=== PATIENT | male | born 1975 | race Caucasian/White ===

== ENCOUNTER 2019-10-23 09:28 | Inpatient (IN) | payer MEDICAID ==
[2019-10-23] MEDS ORDERED: Ondansetron 4 MG Tab.DIS PO PRN (12:49)
[2019-10-23] MEDS ORDERED: Temazepam 15 MG Cap PO PRN (12:49)
[2019-10-23] MEDS: Acetaminophen/oxyCODONE 325-5 MG Tab PO PRN ×2 (13:24→19:25)
[2019-10-23] MEDS: Gabapentin 300 MG Cap PO SCH ×2 (13:24→19:23)
[2019-10-23] MEDS: Propranolol 10 MG Tab PO SCH ×2 (13:24→19:23)
[2019-10-23] MEDS: Nicotine 21 MG/24 Hr Patch TRDERM SCH (13:24)
--- NOTE | 2019-10-23 14:42 | PCM.HP.2 ---
H&P History of Present Illness - General Date of Service: 10/23/19 Admit Problem/Dx: Admission Diagnosis/Problem Admission Diagnosis/Problem Hip fracture requiring operative repair Source of Information: Patient History Limitations: Reports: No Limitations - History of Present Illness Initial Comments - Free Text/Narative: Patient admitted swing bed after an ORIF of right hip. Patient had fallen and had a fracture. Had surgery by Dr. Ortiz. Was continuing to have ongoing pain, difficulty with ambulation so transferred to [place] for ongoing physical therapy and pain control. Patient admits to his hip being very tender today. Painful to touch. Denies headache, fever, shortness of breath or chest pain. Does have considerable ecchymosis to right hip. Duration of Symptoms: Reports: Day(s): Location: Reports: Lower Extremity, Right Quality: Reports: Throbbing Severity: Moderate Improves with: Reports: Medication Worsens with: Reports: Movement Associated Symptoms: Reports: Weakness. Denies: Confusion, Chest Pain, Cough, Fever/Chills, Loss of Appetite, Nausea/Vomiting, Shortness of Breath Right Hip Pain Score (Numeric/FACES): 8 - Related Data Allergies/Adverse Reactions: Allergies Allergy/AdvReac Type Severity Reaction Status Date / Time No Known Allergies Allergy Verified 10/23/19 10:28 Home Medications: Home Meds Gabapentin [Neurontin] 300 mg PO TID 10/23/19 [History] Propranolol [Inderal] 10 mg PO TID 10/23/19 [History] amLODIPine [Norvasc] 10 mg PO DAILY 10/23/19 [History] Past Medical History Cardiovascular History: Reports: Hypertension, Other (See Below) Other Cardiovascular History: mitral valve prolapse Respiratory History: Reports: Asthma Musculoskeletal History: Reports: Fracture Neurological History: Reports: Concussion, Neuropathy, Peripheral Psychiatric History: Reports: Addiction, Autism, Depression Hematologic History: Reports: Blood Transfusion(s) Dermatologic History: Reports: Eczema - Past Surgical History HEENT Surgical History: Reports: Myringotomy w Tube(s), Tonsillectomy Cardiovascular Surgical History: Reports: None Respiratory Surgical History: Reports: None Neurological Surgical History: Reports: None Musculoskeletal Surgical History: Reports: ORIF Dermatological Surgical History: Reports: None Social & Family History - Family History Family Medical History: Noncontributory - Tobacco Use Smoking Status *Q: Current Every Day Smoker Years of Tobacco use: 25 Packs/Tins Daily: 1 - Caffeine Use Caffeine Use: Reports: Soda - Recreational Drug Use Recreational Drug Use: Yes Recreational Drug Type: Reports: Marijuana/Hashish Recreational Drug Use Frequency: Weekly H&P Review of Systems - Review of Systems: Review Of Systems: See Below General: Reports: Weakness, Fatigue. Denies: Fever, Chills, Malaise, Decreased Appetite HEENT: Denies: Ear Pain, Headaches, Rhinitis, Sinus Congestion Pulmonary: Denies: Shortness of Breath, Cough Cardiovascular: Denies: Chest Pain, Edema, Lightheadedness Gastrointestinal: Denies: Abdominal Pain, Nausea, Vomiting Genitourinary: Reports: No Symptoms Musculoskeletal: Reports: Leg Pain, Joint Pain Skin: Reports: Bruising, Other (incision to right hip) Psychiatric: Reports: Anxiety Neurological: Reports: Tremors, Weakness Exam - Exam Exam: See Below - Vital Signs Vital Signs: Last Vital Signs Temp 99.4 F 10/23/19 12:10 Pulse 80 10/23/19 13:24 Resp 18 10/23/19 12:10 BP 128/83 10/23/19 13:24 Pulse Ox 98 10/23/19 12:10 Weight: 169 lb 14.4 oz - Exam General: Alert, Oriented HEENT: Conjunctiva Clear, Mucosa Moist & [place], Posterior Pharynx Clear Neck: Supple Lungs: Clear to Auscultation, Normal Respiratory Effort Cardiovascular: Regular Rate, Regular Rhythm GI/Abdominal Exam: Normal Bowel Sounds, Soft, Non-Tender Extremities: Joint Swelling, Leg Pain, Limited Range of Motion, Other ( ecchymosis to right hip. Deejay intact) Skin: Incision Neuro Extensive - Mental Status: Alert, Oriented x3, Other (essential hand tremors noted) Sepsis Event Note - Evaluation Sepsis Screening Result: No Definite Risk - Focused Exam Vital Signs: Vital Signs Temp Pulse Pulse Resp BP BP Pulse Ox 10/23/19 13:24 80 128/83 10/23/19 12:10 99.4 F 80 18 128/83 98 Date Exam was Performed: 10/25/19 Time Exam was Performed: 09:22 - Problem List (1) Hip fracture requiring operative repair SNOMED Code(s): 047824455 ICD Code: S72.009A - FRACTURE OF UNSP PART OF NECK OF UNSP FEMUR, INIT Status: Acute Priority: High Current Visit: Yes Qualifiers: Encounter type: sequela Fracture type: closed Laterality: right Qualified Code(s): S72.001S - Fracture of unspecified part of neck of right femur, sequela Problem List Initiated/Reviewed/Updated: Yes Orders Last 24hrs: Active Orders 24 hr Category Date Time Status Patient Status [ADT] Routine ADT 10/23/19 12:49 Active Communication Order [RC] .PRN Care 10/23/19 12:49 Active Dressing Change [Wound Care] [RC] Care 10/23/19 12:57 Active Oxygen Therapy [RC] .PRN Care 10/23/19 12:49 Active Up With Assistance [RC] .PRN Care 10/23/19 12:49 Active Vital Signs [RC] Care 10/23/19 12:49 Active PT Evaluation and Treatment [CONS] Routine Cons 10/23/19 12:49 Active Regular Diet [DIET] Diet 10/23/19 Lunch Active Acetaminophen [Tylenol] Med 10/23/19 12:49 Active 650 mg PO Q4H PRN Acetaminophen/oxyCODONE [Percocet 325-5 MG] Med 10/23/19 12:49 Active 1 - 2 tab PO Q4H PRN Cyclobenzaprine [Flexeril] Med 10/23/19 12:49 Active 10 mg PO TID PRN Gabapentin [Neurontin] Med 10/23/19 14:00 Active 300 mg PO TID LORazepam [Ativan] Med 10/23/19 12:49 Active 0.5 mg PO Q6H PRN Nicotine [Habitrol] Med 10/23/19 13:15 Active 21 mg TRDERM DAILY Ondansetron [Zofran ODT] Med 10/23/19 12:49 Active 4 mg PO Q4H PRN Propranolol [Inderal] Med 10/23/19 14:00 Active 10 mg PO TID Temazepam [Restoril] Med 10/23/19 12:49 Active 15 mg PO BEDTIME PRN amLODIPine [Norvasc] Med 10/24/19 08:00 Active 10 mg PO DAILY Resuscitation Status Routine Resus Stat 10/23/19 12:49 Ordered Medication Orders Acetaminophen (Tylenol) 650 mg PO Q4H PRN PRN Reason: Pain (Mild 1-3)/fever Amlodipine Besylate (Norvasc) 10 mg PO DAILY [facility] Cyclobenzaprine HCl (Flexeril) 10 mg PO TID PRN PRN Reason: Muscle Spasm Gabapentin (Neurontin) 300 mg PO TID [facility] Last Admin: 10/23/19 13:24 Dose: 300 mg Lorazepam (Ativan) 0.5 mg PO Q6H PRN PRN Reason: Anxiety Nicotine (Habitrol) 21 mg TRDERM DAILY [facility] Last Admin: 10/23/19 13:24 Dose: 21 mg Ondansetron HCl (Zofran Odt) 4 mg PO Q4H PRN PRN Reason: nausea, able to take PO Oxycodone/Acetaminophen (Percocet 325-5 Mg) 1 - 2 tab PO Q4H PRN PRN Reason: Pain (moderate 4-6) Propranolol HCl (Inderal) 10 mg PO TID [facility] Last Admin: 10/23/19 13:24 Dose: 10 mg Temazepam (Restoril) 15 mg PO BEDTIME PRN PRN Reason: Sleep Assessment/Plan Comment:: ORIF of right hip Plan: Physical therapy for strengthening and ambulation Continue Percocet for pain Ice to hip - Mortality Measure Prognosis:: Good
[2019-10-23] MEDS: Cyclobenzaprine 10 MG Tab PO PRN (16:15)
[2019-10-23] MEDS: Enoxaparin 40 MG/0.4 ML Syringe SUBCUT SCH (19:23)
[2019-10-24] MEDS: Propranolol 10 MG Tab PO SCH ×3 (08:08→19:36)
[2019-10-24] MEDS: Acetaminophen/oxyCODONE 325-5 MG Tab PO PRN ×3 (08:09→18:39)
[2019-10-24] MEDS: Gabapentin 300 MG Cap PO SCH ×3 (08:09→19:36)
[2019-10-24] MEDS: amLODIPine 10 MG Tab PO SCH (08:09)
[2019-10-24] MEDS: Nicotine 21 MG/24 Hr Patch TRDERM SCH (08:11)
[2019-10-24] MEDS: Cyclobenzaprine 10 MG Tab PO PRN (12:16)
[2019-10-24] MEDS: Enoxaparin 40 MG/0.4 ML Syringe SUBCUT SCH (19:36)
[2019-10-25] MEDS: Acetaminophen/oxyCODONE 325-5 MG Tab PO PRN ×5 (05:39→23:16)
[2019-10-25] MEDS: Polyethylene Glycol 3350 Powder 17 GM Packet PO SCH (08:14)
[2019-10-25] MEDS: Propranolol 10 MG Tab PO SCH ×3 (08:16→19:51)
[2019-10-25] MEDS: Gabapentin 300 MG Cap PO SCH ×3 (08:16→19:51)
[2019-10-25] MEDS: amLODIPine 10 MG Tab PO SCH (08:16)
[2019-10-25] MEDS: Nicotine 21 MG/24 Hr Patch TRDERM SCH (08:17)
[2019-10-25] MEDS: Acetaminophen 325 MG Tab PO PRN (08:20)
[2019-10-25] MEDS: LORazepam 0.5 MG Tab PO PRN ×3 (08:21→23:16)
[2019-10-25] MEDS: Enoxaparin 40 MG/0.4 ML Syringe SUBCUT SCH (19:54)
[2019-10-26] MEDS: amLODIPine 10 MG Tab PO SCH (07:45)
[2019-10-26] MEDS: Gabapentin 300 MG Cap PO SCH ×3 (07:45→20:05)
[2019-10-26] MEDS: Nicotine 21 MG/24 Hr Patch TRDERM SCH (07:45)
[2019-10-26] MEDS: Polyethylene Glycol 3350 Powder 17 GM Packet PO SCH (07:45)
[2019-10-26] MEDS: Propranolol 10 MG Tab PO SCH ×3 (07:46→20:05)
[2019-10-26 07:47] LABS: CHLORIDE,CL 97 mEq/L (98-106); SODIUM,NA 133 mEq/L (136-145)
[2019-10-26] MEDS: Acetaminophen/oxyCODONE 325-5 MG Tab PO PRN ×2 (09:50→20:05)
[2019-10-26] MEDS: Acetaminophen 325 MG Tab PO PRN ×2 (14:18→23:48)
[2019-10-26] MEDS ORDERED: QUEtiapine 25 MG Tab PO SCH (20:00)
[2019-10-26] MEDS: Enoxaparin 40 MG/0.4 ML Syringe SUBCUT SCH (20:03)
[2019-10-26] MEDS: LORazepam 0.5 MG Tab PO PRN (20:04)
--- NOTE | 2019-10-26 20:39 | PCM.CONSBH ---
Hx. Present Illness - - General Date of Service: 10/26/19 Admit Problem/Dx: Admission Diagnosis/Problem Admission Diagnosis/Problem Hip fracture requiring operative repair Source of Information: Reports: Patient, RN Notes Reviewed - History of Present Illness INITIAL COMMENTS - FREE TEXT/NARRATIVE: Patient is a 44 year old male admitted to [facility] Bed on 10/23/2019 for hip fracture requiring repair. Eamon reports a history of alcohol abuse which resulted in the patient experiencing Delirium Tremens. He reports lying on the floor of his mom's residence before going to the hospital on . According to the patient surgery did not take place until 4-5 days later due to DT'S. Patient states he has gone through DT'S in the past but says this was his worst experience ever. When going through DT's patient reports experiencing hallucinations, delusions, tremors, but denies seizures. Patient states he will see people talking to him that are not there and sees bugs flying over him. Eamon states he first started drinking at the age of 15. He reports until he fell and fractured his hip was drinking at least 5 rum shooters and 4 tall Camo Malt beverages per day. Patient also reports a history of depression. He reports loss of interest, depressed mood, poor sleep, poor concentration, occasional feelings of hopelessness, sense of failure and feelings of guilt. Patient rates his depression as a 6/10 on a 0 - 10 scale where 0 is no symptoms and 10 is worse symptoms. Patient has complaints of excessive worries related to his mother as he reports being her care give. He also worries about getting caught up with child support. Patient reports seeing bugs flying around him that come and go and says the only thing that makes them go away is drinking. He reports "blacking out over the weekend" even thought he was hospitalized and waking up not knowing where he was. "When I woke up I thought I was at my friend [employer] Patient had to be informed by nursing staff that he was in the hospital. He denies auditory hallucinations. Patient states sleep has been poor since he quit drinking. Appetite reported as increasing. - Related Data Allergies/Adverse Reactions: Allergies Allergy/AdvReac Type Severity Reaction Status Date / Time No Known Allergies Allergy Verified 10/23/19 10:28 Home Medications: Home Meds Gabapentin [Neurontin] 300 mg PO TID 10/23/19 [History] Propranolol [Inderal] 10 mg PO TID 10/23/19 [History] amLODIPine [Norvasc] 10 mg PO DAILY 10/23/19 [History] Past Medical Hx - Other Cardiovascular Hx: mitral valve prolapse Psychiatric Hx: Reports: Addiction, Behavioral, Depression Other Psychiatric Hx: Past medication trials include the following according to the patient: Fluoxetine, Sertraline, Buproprion, Escitalopram, Venlafaxine, and Seroquel. He reports being off the Seroquel for over a year however pharmacy records show it was filled in April,; July,, and September,. 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 Oakes, Psychiatrist. He is unable to remember last time he saw Dr. Oakes. Social & Family History - - Family History Family Psychiatric and CD Hx: Patient reports following family history: depression- mother; chemical dependency- brother Patient states past drug use includes heroin, jael dust, coke, crank, and meth. He reports being able to kick those but has not been able to stop drinking alcohol. - Tobacco Use Years of Tobacco use: 25 - Alcohol Use Alcohol Use History: Yes Alcohol Use in Last Twelve Months: Yes Alcohol Use Frequency: Reports: Daily Alcohol Use Comment: Patient reports drinking 4 tall Camo malt beverages and 5 rum shooters a day. Daily alcohol use. Started drinking at age of 15. - Recreational Drug Use Recreational Drug Use: Yes Recreational Drug Type: Reports: Marijuana/Hashish (reports marijuanan use whenever its available to him) Review of Systems - - Review of Systems: Review Of Systems: See Below Psychiatric: Reports: Confusion (appears disoriented. [facility] a [facility] of [facility] Depression, Hallucinations (Visual ) (reports seeing bugs flying around) Exam - - Exam Exam: See Below - Vital Signs Vital Signs: Last Vital Signs Temp 37.6 C 10/26/19 08:00 Pulse 103 H 10/26/19 20:05 Resp 20 10/26/19 08:00 BP 129/65 10/26/19 20:05 Pulse Ox 98 10/26/19 08:00 - Exam Psychiatric: Other (General Appearance: male adult, dressed in a hospital gown and lying in the hospital bed. Mood: dysphoric. Affect: blunted. Suicidal/Homicidal Ideations: denies. Behavior: pleasant and cooperative, guarded, fair eye contact. Speech: clear, coherent, spontaneous, normal volume and rate. Thought Process: goal directed, linear. Thought Content: Visual hallucinations- reports seeing bugs flying around him. Abnormal movements: tremors noted to bilateral upper extremities. Judgement/Insight: fair.) - [place] I, II, III (1) Alcohol abuse SNOMED Code(s): 68851329 ICD Code: F10.10 - ALCOHOL ABUSE, UNCOMPLICATED Status: Chronic Current Visit: Yes (2) Hallucination SNOMED Code(s): 9580292 ICD Code: R44.3 - HALLUCINATIONS, UNSPECIFIED Status: Acute Current Visit : Yes - Plan FREE TEXT/NARRATIVE: Recommend restarting Seroquel 50 mg at bedtime at this time to help with hallucinations, mood, and sleep. Will follow up with Dr. Oakes from [facility] regarding past treatments. - Orders Orders Last 24hrs: Active Orders 24 hr Category Date Time Status Notify Provider Consults [RC] ASDIRECTED Care 10/26/19 09:00 Active Consult to Physician [CONS] Routine Cons 10/26/19 08:59 Active AMMONIA [REF] Routine Lab 10/26/19 07:15 Received QUEtiapine [SEROqueL] Med 10/26/19 20:00 Active 50 mg PO BEDTIME Medication Orders Acetaminophen (Tylenol) 650 mg PO Q4H PRN PRN Reason: Pain (Mild 1-3)/fever Last Admin: 10/26/19 14:18 Dose: 650 mg Admin: 10/25/19 08:20 Dose: 650 mg Amlodipine Besylate (Norvasc) 10 mg PO DAILY [facility] Last Admin: 10/26/19 07:45 Dose: 10 mg Admin: 10/25/19 08:16 Dose: 10 mg Admin: 10/24/19 08:09 Dose: 10 mg Cyclobenzaprine HCl (Flexeril) 10 mg PO TID PRN PRN Reason: Muscle Spasm Last Admin: 10/24/19 12:16 Dose: 10 mg Admin: 10/23/19 16:15 Dose: 10 mg Enoxaparin Sodium (Lovenox) 40 mg SUBCUT Q24H [facility] Last Admin: 10/26/19 20:03 Dose: 40 mg Admin: 10/25/19 19:54 Dose: 40 mg Admin: 10/24/19 19:36 Dose: 40 mg Admin: 10/23/19 19:23 Dose: 40 mg Gabapentin (Neurontin) 300 mg PO TID [facility] Last Admin: 10/26/19 20:05 Dose: 300 mg Admin: 10/26/19 14:19 Dose: 300 mg Admin: 10/26/19 07:45 Dose: 300 mg Admin: 10/25/19 19:51 Dose: 300 mg Admin: 10/25/19 13:12 Dose: 300 mg Admin: 10/25/19 08:16 Dose: 300 mg Admin: 10/24/19 19:36 Dose: 300 mg Admin: 10/24/19 13:49 Dose: 300 mg Admin: 10/24/19 08:09 Dose: 300 mg Admin: 10/23/19 19:23 Dose: 300 mg Admin: 10/23/19 13:24 Dose: 300 mg Lorazepam (Ativan) 0.5 mg PO Q6H PRN PRN Reason: Anxiety Last Admin: 10/26/19 20:04 Dose: 0.5 mg Admin: 10/25/19 23:16 Dose: 0.5 mg Admin: 10/25/19 14:22 Dose: 0.5 mg Admin: 10/25/19 08:21 Dose: 0.5 mg Nicotine (Habitrol) 21 mg TRDERM DAILY [facility] Last Admin: 10/26/19 07:45 Dose: 21 mg Admin: 10/25/19 08:17 Dose: 21 mg Admin: 10/24/19 08:11 Dose: 21 mg Admin: 10/23/19 13:24 Dose: 21 mg Ondansetron HCl (Zofran Odt) 4 mg PO Q4H PRN PRN Reason: nausea, able to take PO Oxycodone/Acetaminophen (Percocet 325-5 Mg) 1 - 2 tab PO Q4H PRN PRN Reason: Pain (moderate 4-6) Last Admin: 10/26/19 20:05 Dose: 2 tab Admin: 10/26/19 09:50 Dose: 2 tab Admin: 10/25/19 23:16 Dose: 1 tab Admin: 10/25/19 17:57 Dose: 2 tab Admin: 10/25/19 13:13 Dose: 2 tab Admin: 10/25/19 09:14 Dose: 2 tab Admin: 10/25/19 05:39 Dose: 1 tab Admin: 10/24/19 18:39 Dose: 2 tab Admin: 10/24/19 13:49 Dose: 2 tab Admin: 10/24/19 08:09 Dose: 2 tab Admin: 10/23/19 19:25 Dose: 2 tab Admin: 10/23/19 13:24 Dose: 2 tab Polyethylene Glycol (Miralax) 17 gm PO DAILY [facility] Last Admin: 10/26/19 07:45 Dose: 17 gm Admin: 10/25/19 08:14 Dose: 17 gm Propranolol HCl (Inderal) 10 mg PO TID [facility] Last Admin: 10/26/19 20:05 Dose: 10 mg Admin: 10/26/19 14:19 Dose: 10 mg Admin: 10/26/19 07:46 Dose: 10 mg Admin: 10/25/19 19:51 Dose: 10 mg Admin: 10/25/19 13:12 Dose: 10 mg Admin: 10/25/19 08:16 Dose: 10 mg Admin: 10/24/19 19:36 Dose: 10 mg Admin: 10/24/19 13:50 Dose: 10 mg Admin: 10/24/19 08:08 Dose: 10 mg Admin: 10/23/19 19:23 Dose: 10 mg Admin: 10/23/19 13:24 Dose: 10 mg Quetiapine Fumarate (Seroquel) 50 mg PO BEDTIME [facility] Last Admin: 10/26/19 20:04 Dose: 50 mg Temazepam (Restoril) 15 mg PO BEDTIME PRN PRN Reason: Sleep
[2019-10-27] MEDS: Acetaminophen/oxyCODONE 325-5 MG Tab PO PRN (04:05)
[2019-10-27] MEDS: LORazepam 0.5 MG Tab PO PRN (05:02)
[2019-10-27] MEDS: Polyethylene Glycol 3350 Powder 17 GM Packet PO SCH (08:10)
[2019-10-27] MEDS: Propranolol 10 MG Tab PO SCH ×2 (08:11→13:50)
[2019-10-27] MEDS: Gabapentin 300 MG Cap PO SCH ×2 (08:12→13:51)
[2019-10-27] MEDS: amLODIPine 10 MG Tab PO SCH (08:13)
[2019-10-27] MEDS: Acetaminophen 325 MG Tab PO PRN (08:13)
[2019-10-27] MEDS ORDERED: Ibuprofen 200 MG Tab PO PRN (08:25)
[2019-10-27] MEDS ORDERED: QUEtiapine 25 MG Tab PO SCH (08:30)
[2019-10-27] MEDS: Nicotine 21 MG/24 Hr Patch TRDERM SCH (08:33)
[2019-10-27] MEDS ORDERED: LORazepam 0.5 MG Tab PO ONE ×2 (08:45→08:50)
--- NOTE | 2019-10-27 08:56 | PCM.PN.BH ---
- General Info Date of Service: 10/27/19 - Review of Systems Psychiatric: Reports: Other (Patient states he slept poor last night and is tired today. He denies seeing bugs today. Patient holding a pillow out and when asked what he was doing witht he pillow Eamon replied by saying he was giving it to his brother in the chair. Patient told his brother is not here and he says "very funny, this joke is getting old." He is oriented to place and date.) - Patient Data Vitals - Most Recent: Last Vital Signs Temp 38.1 C 10/27/19 08:00 Pulse 101 H 10/27/19 08:11 Resp 20 10/27/19 08:00 BP 136/80 10/27/19 08:13 Pulse Ox 97 10/27/19 08:00 - Exam Psychiatric: Reports: Agitated, Hallucinations, Other (Appearance: adult male wearing a hospital gown laying in bed. Wearing glasses. Mood: irritable. Affect: blunted. Suicidal/Homicidal Ideations: denies. Behavior: psycomotor appears agitated- pulling blankets off him and trying to put on floor , trying to sit up in the bed and get out. eye contact well established. Speech : clear and spontaneous. normal rate and volume. Thought Processes: linear, goal directed. Thought Content: visual hallucinatons- seeing his brother sitting in the chair next to the bed. No family here this am. Denies seeing bugs this am. Abnormal motor movements: tremors to bilateral upper extremities. Judgement/Insight: poor. Orientation: Patient able to tell undersigned he is in the hospital in [place] and that today is October 27.) - [place] I, II, III (1) Alcohol abuse SNOMED Code(s): 90165632 ICD Code: F10.10 - ALCOHOL ABUSE, UNCOMPLICATED Status: Chronic Current Visit: Yes (2) Hallucination SNOMED Code(s): 0406294 ICD Code: R44.3 - HALLUCINATIONS, UNSPECIFIED Status: Acute Current Visit : Yes - Plan FREE TEXT/NARRATIVE: Discussed following recommendations with hospital provider: increase Quetiapine to 50 mg BID to target hallucinations. Schedule Lorazepam 1 mg TID. - Orders Orders Last 24hrs: Active Orders 24 hr Category Date Time Status Notify Provider Consults [RC] ASDIRECTED Care 10/26/19 09:00 Active Consult to Physician [CONS] Routine Cons 10/26/19 08:59 Active Ibuprofen [Motrin] Med 10/27/19 08:25 Active 400 mg PO Q6H PRN LORazepam [Ativan] Med 10/27/19 08:45 Once 0.5 mg PO ONETIME ONE LORazepam [Ativan] Med 10/27/19 08:50 Once 1 mg PO ONETIME ONE LORazepam [Ativan] Med 10/27/19 14:00 Active 1 mg PO TID QUEtiapine [SEROqueL] Med 10/27/19 08:30 Active 50 mg PO BID Medication Orders Acetaminophen (Tylenol) 650 mg PO Q4H PRN PRN Reason: Pain (Mild 1-3)/fever Last Admin: 10/27/19 08:13 Dose: 650 mg Admin: 10/26/19 23:48 Dose: 650 mg Admin: 10/26/19 14:18 Dose: 650 mg Admin: 10/25/19 08:20 Dose: 650 mg Amlodipine Besylate (Norvasc) 10 mg PO DAILY [facility] Last Admin: 10/27/19 08:13 Dose: 10 mg Admin: 10/26/19 07:45 Dose: 10 mg Admin: 10/25/19 08:16 Dose: 10 mg Admin: 10/24/19 08:09 Dose: 10 mg Cyclobenzaprine HCl (Flexeril) 10 mg PO TID PRN PRN Reason: Muscle Spasm Last Admin: 10/24/19 12:16 Dose: 10 mg Admin: 10/23/19 16:15 Dose: 10 mg Enoxaparin Sodium (Lovenox) 40 mg SUBCUT Q24H [facility] Last Admin: 10/26/19 20:03 Dose: 40 mg Admin: 10/25/19 19:54 Dose: 40 mg Admin: 10/24/19 19:36 Dose: 40 mg Admin: 10/23/19 19:23 Dose: 40 mg Gabapentin (Neurontin) 300 mg PO TID [facility] Last Admin: 10/27/19 08:12 Dose: 300 mg Admin: 10/26/19 20:05 Dose: 300 mg Admin: 10/26/19 14:19 Dose: 300 mg Admin: 10/26/19 07:45 Dose: 300 mg Admin: 10/25/19 19:51 Dose: 300 mg Admin: 10/25/19 13:12 Dose: 300 mg Admin: 10/25/19 08:16 Dose: 300 mg Admin: 10/24/19 19:36 Dose: 300 mg Admin: 10/24/19 13:49 Dose: 300 mg Admin: 10/24/19 08:09 Dose: 300 mg Admin: 10/23/19 19:23 Dose: 300 mg Admin: 10/23/19 13:24 Dose: 300 mg Ibuprofen (Motrin) 400 mg PO Q6H PRN PRN Reason: Fever Lorazepam (Ativan) 0.5 mg PO Q6H PRN PRN Reason: Anxiety Last Admin: 10/27/19 05:02 Dose: 0.5 mg Admin: 10/26/19 20:04 Dose: 0.5 mg Admin: 10/25/19 23:16 Dose: 0.5 mg Admin: 10/25/19 14:22 Dose: 0.5 mg Admin: 10/25/19 08:21 Dose: 0.5 mg Lorazepam (Ativan) 1 mg PO TID [facility] Lorazepam (Ativan) 0.5 mg PO ONETIME ONE Stop: 10/27/19 08:46 Nicotine (Habitrol) 21 mg TRDERM DAILY [facility] Last Admin: 10/27/19 08:33 Dose: 21 mg Admin: 10/26/19 07:45 Dose: 21 mg Admin: 10/25/19 08:17 Dose: 21 mg Admin: 10/24/19 08:11 Dose: 21 mg Admin: 10/23/19 13:24 Dose: 21 mg Ondansetron HCl (Zofran Odt) 4 mg PO Q4H PRN PRN Reason: nausea, able to take PO Oxycodone/Acetaminophen (Percocet 325-5 Mg) 1 - 2 tab PO Q4H PRN PRN Reason: Pain (moderate 4-6) Last Admin: 10/27/19 04:05 Dose: 2 tab Admin: 10/26/19 20:05 Dose: 2 tab Admin: 10/26/19 09:50 Dose: 2 tab Admin: 10/25/19 23:16 Dose: 1 tab Admin: 10/25/19 17:57 Dose: 2 tab Admin: 10/25/19 13:13 Dose: 2 tab Admin: 10/25/19 09:14 Dose: 2 tab Admin: 10/25/19 05:39 Dose: 1 tab Admin: 10/24/19 18:39 Dose: 2 tab Admin: 10/24/19 13:49 Dose: 2 tab Admin: 10/24/19 08:09 Dose: 2 tab Admin: 10/23/19 19:25 Dose: 2 tab Admin: 10/23/19 13:24 Dose: 2 tab Polyethylene Glycol (Miralax) 17 gm PO DAILY [facility] Last Admin: 10/27/19 08:10 Dose: 17 gm Admin: 10/26/19 07:45 Dose: 17 gm Admin: 10/25/19 08:14 Dose: 17 gm Propranolol HCl (Inderal) 10 mg PO TID [facility] Last Admin: 10/27/19 08:11 Dose: 10 mg Admin: 10/26/19 20:05 Dose: 10 mg Admin: 10/26/19 14:19 Dose: 10 mg Admin: 10/26/19 07:46 Dose: 10 mg Admin: 10/25/19 19:51 Dose: 10 mg Admin: 10/25/19 13:12 Dose: 10 mg Admin: 10/25/19 08:16 Dose: 10 mg Admin: 10/24/19 19:36 Dose: 10 mg Admin: 10/24/19 13:50 Dose: 10 mg Admin: 10/24/19 08:08 Dose: 10 mg Admin: 10/23/19 19:23 Dose: 10 mg Admin: 10/23/19 13:24 Dose: 10 mg Quetiapine Fumarate (Seroquel) 50 mg PO BID [facility] Temazepam (Restoril) 15 mg PO BEDTIME PRN PRN Reason: Sleep
[2019-10-27 13:52] VITALS: BP 129/78; PULSE 108
[2019-10-27] MEDS ORDERED: chlordiazePOXIDE 10 MG Cap PO SCH (14:00)
[2019-10-27] MEDS ORDERED: LORazepam 0.5 MG Tab PO SCH (14:00)
[2019-10-27] MEDS ORDERED: LORazepam 2 MG/ML Syringe IVPUSH ONE (14:52)
[2019-10-27] MEDS ORDERED: LORazepam 2 MG/ML Syringe IVPUSH PRN (14:52)
[2019-10-27] MEDS ORDERED: Haloperidol Lactate 5 MG/ML SDV IM ONE (17:15)
[2019-10-27] MEDS ORDERED: Haloperidol Lactate 5 MG/ML SDV ONE (17:44)
[2019-10-27] MEDS ORDERED: LORazepam 2 MG/ML Syringe ONE (18:25)
--- NOTE | 2019-10-28 20:38 | PCM.DCSUM1 ---
Discharge Summary - Hospital Course Free Text/Narrative:: Eamon is a 44 year old male admitted to swing bed for physical therapy after ORIF of right hip as a result of a fall. Had been found on the floor after consuming large amount of alcohol. Was sent to the [facility]. Did go through DTs ove the next few days. ORIF then completed by Dr. Ortiz. Transferred here as was having difficulty understanding concept of toe touch weight bearing. History of alcohol abuse. Has been at the [facility] several times for alcohol treatment. HPI Initial Comments: Patient is a 44 year old male admitted to Swing Bed on 10/23/2019 for hip fracture requiring repair. Eamon reports a history of alcohol abuse which resulted in the patient experiencing Delirium Tremens. He reports lying on the floor of his mom's residence before going to the hospital on . According to the patient surgery did not take place until 4-5 days later due to DT'S. Patient states he has gone through DT'S in the past but says this was his worst experience ever. When going through DT's patient reports experiencing hallucinations, delusions, tremors, but denies seizures. Patient states he will see people talking to him that are not there and sees bugs flying over him. Eamon states he first started drinking at the age of 15. He reports until he fell and fractured his hip was drinking at least 5 rum shooters and 4 tall Camo Malt beverages per day. Patient also reports a history of depression. He reports loss of interest, depressed mood, poor sleep, poor concentration, occasional feelings of hopelessness, sense of failure and feelings of guilt. Patient rates his depression as a 6/10 on a 0 - 10 scale where 0 is no symptoms and 10 is worse symptoms. Patient has complaints of excessive worries related to his mother as he reports being her care give. He also worries about getting caught up with child support. Patient reports seeing bugs flying around him that come and go and says the only thing that makes them go away is drinking. He reports "blacking out over the weekend" even thought he was hospitalized and waking up not knowing where he was. "When I woke up I thought I was at my friend [employer]." Patient had to be informed by nursing staff that he was in the hospital. He denies auditory hallucinations. Patient states sleep has been poor since he quit drinking. Appetite reported as increasing. Diagnosis: Stroke: No Modified [place]aura Scale: No Symptoms at All Modified [place] Scale Score: 0 - Discharge Data Discharge Date: 10/27/19 Discharge Disposition: DC/Tfer to Acute Hospital 02 Condition: Undetermined - Referral to Home Health Primary Care Physician: Colt Ortiz MD - Discharge Diagnosis/Problem(s) (1) Hip fracture requiring operative repair SNOMED Code(s): 562712116 ICD Code: S72.009A - FRACTURE OF UNSP PART OF NECK OF UNSP FEMUR, INIT Status: Acute Priority: High Qualifiers: Encounter type: sequela Fracture type: closed Laterality: right Qualified Code(s): S72.001S - Fracture of unspecified part of neck of right femur, sequela - Patient Summary/Data Complications: none Consults: Consultations 10/23/19 12:49 PT Evaluation and Treatment [CONS] Routine 10/26/19 08:59 Consult to Physician [CONS] Routine Hospital Course: Patient admitted on Saturday following ORIF of right hip for physical therapy. ON admit, patient cooperative, conversive. Significant tremors noted but states chronic in nature. Currently on propranolol. Using nicotine patch for smoking cessation, states tolerating well. Over the first days, patient becoming more restless. Started running a fever. Throwing things on the floor , uncooperative. Delusional at times, seeing bugs on the wall and people in the room that aren't there. Did start Seroquel and Ativan TID but becoming more restless and uncooperative. He continued to have a fever. Labs done, show WBC of 12.2. Urine clear. Lung sounds clear. Incision is clean and dry. Has minimal drainage on bandage. No redness or warmth to incision. Started Librium, given more Ativan but patient continued to worsen in regards to restlessness and thrashing around in bed. Contacted for possible consult as unable to find source of fever and becoming more uncooperative. Discussed with Dr. Mckeon, hospitalist who agreed to accept the patient in transfer. Had also consulted with director clinical operations who recommended to try Haldol. Transferred to [place] per [facility] services. Dr. Michel aware. Mother aware. - Patient Instructions Diet: Usual Diet as Tolerated Activity: As Tolerated Other/Special Instructions: Transfer to per ALS - Discharge Plan *PRESCRIPTION DRUG MONITORING PROGRAM REVIEWED*: No *COPY OF PRESCRIPTION DRUG MONITORING REPORT IN PATIENT FELIX: No Home Medications: Home Meds Gabapentin [Neurontin] 300 mg PO TID 10/23/19 [History] Propranolol [Inderal] 10 mg PO TID 10/23/19 [History] amLODIPine [Norvasc] 10 mg PO DAILY 10/23/19 [History] - Discharge Summary/Plan Comment DC Time >30 min.: Yes Discharge Summary/Plan Comment: Transfer to . Time for consultation with receiving hospital 20 minutes Time with patient 10 minutes Time for documentation 10 minutes. - General Info Date of Service: 10/27/19 Admission Dx/Problem (Free Text: Admission Diagnosis/Problem Admission Diagnosis/Problem Hip fracture requiring operative repair - Review of Systems General: Reports: Fever HEENT: Reports: No Symptoms Pulmonary: Denies: Shortness of Breath, Cough Cardiovascular: Denies: Chest Pain Gastrointestinal: Denies: Abdominal Pain, Vomiting Genitourinary: Reports: No Symptoms Musculoskeletal: Reports: Leg Pain, Joint Pain Skin: Reports: Other (incision) - Patient Data Vitals - Most Recent: Last Vital Signs Temp 101.7 F H 10/27/19 17:52 Pulse 108 H 10/27/19 13:52 Resp 20 10/27/19 08:00 BP 129/78 10/27/19 13:52 Pulse Ox 97 10/27/19 08:00 Weight - Most Recent: 169 lb 14.4 oz Med Orders - Current: Current Medications Discontinued Medications Acetaminophen (Tylenol) 650 mg PO Q4H PRN PRN Reason: Pain (Mild 1-3)/fever Last Admin: 10/27/19 08:13 Dose: 650 mg Amlodipine Besylate (Norvasc) 10 mg PO DAILY [facility] Last Admin: 10/27/19 08:13 Dose: 10 mg Chlordiazepoxide HCl (Librium) 10 mg PO TID [facility] Last Admin: 10/27/19 15:38 Dose: 10 mg Cyclobenzaprine HCl (Flexeril) 10 mg PO TID PRN PRN Reason: Muscle Spasm Last Admin: 10/24/19 12:16 Dose: 10 mg Enoxaparin Sodium (Lovenox) 40 mg SUBCUT Q24H [facility] Last Admin: 10/26/19 20:03 Dose: 40 mg Gabapentin (Neurontin) 300 mg PO TID [facility] Last Admin: 10/27/19 13:51 Dose: 300 mg Haloperidol Lactate (Haldol) 2 mg IM ONETIME ONE Stop: 10/27/19 17:16 Last Admin: 10/27/19 17:39 Dose: 2 mg Haloperidol Lactate (Haldol) Confirm Administered Dose 5 mg .ROUTE .STK-MED ONE Stop: 10/27/19 17:45 Last Admin: 10/27/19 17:38 Dose: Not Given Ibuprofen (Motrin) 400 mg PO Q6H PRN PRN Reason: Fever Last Admin: 10/27/19 17:52 Dose: 400 mg Lorazepam (Ativan) 0.5 mg PO Q6H PRN PRN Reason: Anxiety Last Admin: 10/27/19 05:02 Dose: 0.5 mg Lorazepam (Ativan) 1 mg PO TID [facility] Last Admin: 10/27/19 13:49 Dose: 1 mg Lorazepam (Ativan) 0.5 mg PO ONETIME ONE Stop: 10/27/19 08:46 Last Admin: 10/27/19 08:59 Dose: Not Given Lorazepam (Ativan) 1 mg PO ONETIME ONE Stop: 10/27/19 08:51 Last Admin: 10/27/19 08:58 Dose: 1 mg Lorazepam (Ativan) 1 - 2 mg IVPUSH Q2H PRN PRN Reason: Anxiety Lorazepam (Ativan) 1 mg IVPUSH ONETIME ONE Stop: 10/27/19 14:53 Last Admin: 10/27/19 15:09 Dose: 1 mg Lorazepam (Ativan) Confirm Administered Dose 2 mg .ROUTE .STK-MED ONE Stop: 10/27/19 18:26 Last Admin: 10/27/19 20:03 Dose: Not Given Nicotine (Habitrol) 21 mg TRDERM DAILY [facility] Last Admin: 10/27/19 08:33 Dose: 21 mg Ondansetron HCl (Zofran Odt) 4 mg PO Q4H PRN PRN Reason: nausea, able to take PO Oxycodone/Acetaminophen (Percocet 325-5 Mg) 1 - 2 tab PO Q4H PRN PRN Reason: Pain (moderate 4-6) Last Admin: 10/27/19 04:05 Dose: 2 tab Polyethylene Glycol (Miralax) 17 gm PO DAILY [facility] Last Admin: 10/27/19 08:10 Dose: 17 gm Propranolol HCl (Inderal) 10 mg PO TID [facility] Last Admin: 10/27/19 13:50 Dose: 10 mg Quetiapine Fumarate (Seroquel) 50 mg PO BEDTIME [facility] Last Admin: 10/26/19 20:04 Dose: 50 mg Quetiapine Fumarate (Seroquel) 50 mg PO BID [facility] Last Admin: 10/27/19 08:58 Dose: 50 mg Temazepam (Restoril) 15 mg PO BEDTIME PRN PRN Reason: Sleep - Exam General: Reports: Alert. Denies: Cooperative HEENT: Reports: Mucous Membr. Moist/[place] Neck: Reports: Supple Lungs: Reports: Clear to Auscultation, Normal Respiratory Effort Cardiovascular: Reports: Regular Rate, Regular Rhythm GI/Abdominal Exam: Normal Bowel Sounds, Soft, Non-Tender Skin: Reports: Warm, Dry Wound/Incisions: Reports: Dressing Dry and Intact
== END 2019-10-27 18:30 | DRG 560 ==
LOC: CC.MS 11:09 → UNDOADMIN 11:09 → CC.MS 12:49
PROVIDERS: ADMIT Physician Assistant Medical; ATTEND Family Medicine
DX: S72.001D Fracture of unspecified part of neck of right femur, subsequent encounter for closed fracture with routine healing (principal); F84.0 Autistic disorder; R44.3 Hallucinations, unspecified; W19.XXXD Unspecified fall, subsequent encounter; I10 Essential (primary) hypertension; I34.1 Nonrheumatic mitral (valve) prolapse; G62.9 Polyneuropathy, unspecified; F32.9 Major depressive disorder, single episode, unspecified; F17.210 Nicotine dependence, cigarettes, uncomplicated; F10.10 Alcohol abuse, uncomplicated; Z90.89 Acquired absence of other organs; Z79.899 Other long term (current) drug therapy
CPT/HCPCS: 36415; 80053; 81001; 82140; 85025; 97110-GP; 97161-GP; 97530-GP; A9270-GY; J1630; J1650; J2060

== ENCOUNTER 2019-11-10 13:42 | Inpatient (IN) | payer MEDICAID ==
[2019-11-10] MEDS ORDERED: Acetaminophen 325 MG Tab PO PRN (14:39)
[2019-11-10] MEDS ORDERED: Magnesium Hydroxide 400 MG/5 ML Susp 30 ML Cup PO PRN (14:39)
[2019-11-10] MEDS ORDERED: Ondansetron 4 MG Tab.DIS PO PRN (14:39)
[2019-11-10] MEDS: Acetaminophen/oxyCODONE 325-5 MG Tab PO PRN ×2 (17:05→20:02)
[2019-11-10] MEDS: Nicotine 21 MG/24 Hr Patch TRDERM SCH (17:37)
[2019-11-10] MEDS ORDERED: Pregabalin 50 MG Cap PO SCH (20:00)
[2019-11-10] MEDS: Propranolol 10 MG Tab PO SCH (20:03)
[2019-11-10] MEDS: Enoxaparin 40 MG/0.4 ML Syringe SUBCUT SCH (20:04)
[2019-11-10] MEDS: LYRICA PO SCH (20:32)
[2019-11-10] MEDS: Temazepam 15 MG Cap PO PRN (21:13)
--- NOTE | 2019-11-10 23:40 | HP ---
CHIEF COMPLAINT: Swing bed. HISTORY: Eamon is a 44-year-old male, who was previously admitted to our swing bed unit after sustaining a hip fracture and fall. He is a known chronic alcohol user and was managed in [facility], sent to us for swing bed placement and began going into severe DTs. He was transferred to [place] where he was kept in the ICU for a couple days. He has been slowly weaned off all benzos and phenobarb to the point where he was quite stable. He is having no further withdrawals from his alcohol, and he is sent to us for rehab for his hip fracture. The patient's acute care stay at [facility] is reviewed. It is worthy of note during his DTs, he was febrile. They did do a workup including blood cultures, and was on IV antibiotics, and his testing was negative for an infectious source. The patient today denies any complaints other than complaints of hip pain. He is having no feelings of anxiety, tremors, or nervousness. PAST MEDICAL HISTORY: Includes a recent fall with ORIF of the hip fracture, hypertension, history of chronic alcohol abuse, mitral valve prolapse, and DTs. PAST SURGICAL HISTORY: Includes his recent ORIF of the hip fracture. CURRENT MEDICATIONS: Include, 1. Cymbalta 30 mg daily. 2. Multivitamin 1 daily. 3. Lyrica 75 mg p.o. b.i.d. ALLERGIES: NONE. SOCIAL HISTORY: The patient at this time is a nonsmoker, nondrinker. Has a prior history of severe alcohol abuse and multiple drug abuse. FAMILY HISTORY: Noncontributory. REVIEW OF SYSTEMS: As per above. PHYSICAL EXAMINATION: GENERAL: The patient is pleasant, cooperative, and in no distress. Makes a pleasant conversation. Appears to have no signs of agitation or difficulty with thought. HEENT: Grossly benign. Mucous membranes moist. NECK: Supple. No adenopathy. LUNGS: Lung sounds are clear throughout. CARDIAC: Tones are regular without ectopy. ABDOMEN: Soft and nontender. Good bowel sounds throughout. MUSCULOSKELETAL: Femoral pulses are strong. The right hip incisions look excellent with full closure. No erythema, drainage, etc. He has range of motion of the hip without pain. Pulses are palpable in both feet. SKIN: [place], warm, and dry. ASSESSMENT: 1. SWING BED PLACEMENT. 2. STATUS POST OPEN REDUCTION AND INTERNAL FIXATION, HIP FRACTURE. 3. STATUS POST SEVERE DELIRIUM TREMENS FROM ALCOHOL WITHDRAWAL. 4. HISTORY OF HYPERTENSION. PLAN: The patient will be admitted under prior orders. He is toe touching only. We will have PT consult for routine rehab after ORIF. No other changes. MARIO/KANWAL /[id number]
[2019-11-11] MEDS: Acetaminophen/oxyCODONE 325-5 MG Tab PO PRN (03:10)
[2019-11-11] MEDS: Propranolol 10 MG Tab PO SCH ×2 (08:58→20:03)
[2019-11-11] MEDS: Multivitamin Tab PO SCH (08:59)
[2019-11-11] MEDS: Nicotine 21 MG/24 Hr Patch TRDERM SCH (08:59)
[2019-11-11] MEDS: LYRICA PO SCH ×2 (08:59→20:03)
[2019-11-11] MEDS: DULoxetine 30 MG Cap PO SCH (08:59)
[2019-11-11] MEDS: oxyCODONE 5 MG Tab PO PRN ×3 (09:28→18:39)
[2019-11-11] MEDS: Acetaminophen 325 MG Tab PO PRN (14:01)
[2019-11-11] MEDS: Enoxaparin 40 MG/0.4 ML Syringe SUBCUT SCH (20:02)
[2019-11-12] MEDS: oxyCODONE 5 MG Tab PO PRN ×5 (00:07→19:35)
[2019-11-12] MEDS: Acetaminophen 325 MG Tab PO PRN ×3 (00:16→19:34)
[2019-11-12] MEDS: LYRICA PO SCH ×2 (07:43→19:33)
[2019-11-12] MEDS: Nicotine 21 MG/24 Hr Patch TRDERM SCH (07:43)
[2019-11-12] MEDS: DULoxetine 30 MG Cap PO SCH (07:43)
[2019-11-12] MEDS: Propranolol 10 MG Tab PO SCH ×2 (07:43→19:31)
[2019-11-12] MEDS: Multivitamin Tab PO SCH (07:43)
[2019-11-12] MEDS: Enoxaparin 40 MG/0.4 ML Syringe SUBCUT SCH (19:36)
[2019-11-13] MEDS: oxyCODONE 5 MG Tab PO PRN ×4 (02:42→20:25)
[2019-11-13] MEDS: Temazepam 15 MG Cap PO PRN (02:42)
[2019-11-13] MEDS: Acetaminophen 325 MG Tab PO PRN (05:51)
[2019-11-13] MEDS: DULoxetine 30 MG Cap PO SCH (08:00)
[2019-11-13] MEDS: LYRICA PO SCH ×2 (08:00→20:24)
[2019-11-13] MEDS: Propranolol 10 MG Tab PO SCH ×2 (08:01→20:23)
[2019-11-13] MEDS: Multivitamin Tab PO SCH (08:01)
[2019-11-13] MEDS: Nicotine 21 MG/24 Hr Patch TRDERM SCH (08:02)
[2019-11-13] MEDS: Enoxaparin 40 MG/0.4 ML Syringe SUBCUT SCH (20:24)
[2019-11-14] MEDS: oxyCODONE 5 MG Tab PO PRN ×4 (01:49→19:28)
[2019-11-14] MEDS: Temazepam 15 MG Cap PO PRN ×2 (01:51→22:19)
[2019-11-14] MEDS: Nicotine 21 MG/24 Hr Patch TRDERM SCH (07:26)
[2019-11-14] MEDS: Propranolol 10 MG Tab PO SCH ×2 (07:27→19:26)
[2019-11-14] MEDS: LYRICA PO SCH ×2 (07:28→19:30)
[2019-11-14] MEDS: Multivitamin Tab PO SCH (07:29)
[2019-11-14] MEDS: DULoxetine 30 MG Cap PO SCH (07:31)
[2019-11-14] MEDS: Acetaminophen 325 MG Tab PO PRN ×2 (07:36→19:27)
[2019-11-14] MEDS: Enoxaparin 40 MG/0.4 ML Syringe SUBCUT SCH (19:30)
[2019-11-15] MEDS: Acetaminophen 325 MG Tab PO PRN ×3 (02:32→21:27)
[2019-11-15] MEDS: oxyCODONE 5 MG Tab PO PRN ×4 (02:32→21:26)
[2019-11-15] MEDS: Nicotine 21 MG/24 Hr Patch TRDERM SCH (07:50)
[2019-11-15] MEDS: Multivitamin Tab PO SCH (07:52)
[2019-11-15] MEDS: DULoxetine 30 MG Cap PO SCH (07:52)
[2019-11-15] MEDS: Propranolol 10 MG Tab PO SCH ×2 (07:52→20:05)
[2019-11-15] MEDS: LYRICA PO SCH ×2 (07:52→20:05)
[2019-11-15] MEDS: Enoxaparin 40 MG/0.4 ML Syringe SUBCUT SCH (20:05)
[2019-11-15] MEDS: Temazepam 15 MG Cap PO PRN (21:27)
[2019-11-16] MEDS: oxyCODONE 5 MG Tab PO PRN ×3 (03:40→19:01)
[2019-11-16] MEDS: Acetaminophen 325 MG Tab PO PRN ×3 (05:45→19:02)
[2019-11-16] MEDS: Nicotine 21 MG/24 Hr Patch TRDERM SCH (07:52)
[2019-11-16] MEDS: LYRICA PO SCH ×2 (07:54→19:32)
[2019-11-16] MEDS: Propranolol 10 MG Tab PO SCH ×2 (07:54→19:32)
[2019-11-16] MEDS: Multivitamin Tab PO SCH (07:55)
[2019-11-16] MEDS: DULoxetine 30 MG Cap PO SCH (07:55)
[2019-11-16] MEDS: Temazepam 15 MG Cap PO PRN (19:32)
[2019-11-16] MEDS: Enoxaparin 40 MG/0.4 ML Syringe SUBCUT SCH (19:33)
[2019-11-17] MEDS: Acetaminophen 325 MG Tab PO PRN ×3 (03:08→19:36)
[2019-11-17] MEDS: oxyCODONE 5 MG Tab PO PRN ×3 (03:09→19:35)
[2019-11-17] MEDS: DULoxetine 30 MG Cap PO SCH (07:58)
[2019-11-17] MEDS: LYRICA PO SCH ×2 (07:58→19:34)
[2019-11-17] MEDS: Multivitamin Tab PO SCH (07:58)
[2019-11-17] MEDS: Propranolol 10 MG Tab PO SCH ×2 (07:58→19:35)
[2019-11-17] MEDS: Nicotine 21 MG/24 Hr Patch TRDERM SCH (08:06)
[2019-11-17] MEDS: Enoxaparin 40 MG/0.4 ML Syringe SUBCUT SCH (19:35)
[2019-11-17] MEDS: Temazepam 15 MG Cap PO PRN (19:39)
[2019-11-18] MEDS: Acetaminophen 325 MG Tab PO PRN ×3 (03:38→19:38)
[2019-11-18] MEDS: oxyCODONE 5 MG Tab PO PRN ×3 (03:39→19:35)
[2019-11-18] MEDS: DULoxetine 30 MG Cap PO SCH (07:39)
[2019-11-18] MEDS: Multivitamin Tab PO SCH (07:39)
[2019-11-18] MEDS: LYRICA PO SCH ×2 (07:39→19:36)
[2019-11-18] MEDS: Nicotine 21 MG/24 Hr Patch TRDERM SCH (07:39)
[2019-11-18] MEDS: Propranolol 10 MG Tab PO SCH ×2 (07:40→19:37)
[2019-11-18] MEDS: Enoxaparin 40 MG/0.4 ML Syringe SUBCUT SCH (19:35)
[2019-11-18] MEDS: Temazepam 15 MG Cap PO PRN (19:37)
[2019-11-19] MEDS: Acetaminophen 325 MG Tab PO PRN ×3 (03:45→19:44)
[2019-11-19] MEDS: oxyCODONE 5 MG Tab PO PRN ×3 (03:45→19:44)
[2019-11-19] MEDS: Nicotine 21 MG/24 Hr Patch TRDERM SCH (08:08)
[2019-11-19] MEDS: LYRICA PO SCH ×2 (08:09→19:43)
[2019-11-19] MEDS: Multivitamin Tab PO SCH (08:09)
[2019-11-19] MEDS: Propranolol 10 MG Tab PO SCH ×2 (08:10→19:44)
[2019-11-19] MEDS: DULoxetine 30 MG Cap PO SCH (08:10)
[2019-11-19] MEDS: Enoxaparin 40 MG/0.4 ML Syringe SUBCUT SCH (19:43)
[2019-11-19] MEDS: Temazepam 15 MG Cap PO PRN (19:44)
[2019-11-20] MEDS: Acetaminophen 325 MG Tab PO PRN ×3 (04:10→21:06)
[2019-11-20] MEDS: oxyCODONE 5 MG Tab PO PRN ×3 (04:10→21:02)
[2019-11-20] MEDS: LYRICA PO SCH ×2 (07:44→19:49)
[2019-11-20] MEDS: Multivitamin Tab PO SCH (07:44)
[2019-11-20] MEDS: Propranolol 10 MG Tab PO SCH ×2 (07:44→19:49)
[2019-11-20] MEDS: Nicotine 21 MG/24 Hr Patch TRDERM SCH (07:44)
[2019-11-20] MEDS: DULoxetine 30 MG Cap PO SCH (07:44)
[2019-11-20] MEDS: Enoxaparin 40 MG/0.4 ML Syringe SUBCUT SCH (19:50)
[2019-11-21] MEDS: oxyCODONE 5 MG Tab PO PRN ×3 (05:02→22:19)
[2019-11-21] MEDS: Acetaminophen 325 MG Tab PO PRN ×3 (05:04→22:20)
[2019-11-21] MEDS: Multivitamin Tab PO SCH (07:39)
[2019-11-21] MEDS: Propranolol 10 MG Tab PO SCH ×2 (07:39→19:31)
[2019-11-21] MEDS: LYRICA PO SCH ×2 (07:39→19:31)
[2019-11-21] MEDS: Nicotine 21 MG/24 Hr Patch TRDERM SCH (07:40)
[2019-11-21] MEDS: DULoxetine 30 MG Cap PO SCH (07:40)
[2019-11-21] MEDS: Enoxaparin 40 MG/0.4 ML Syringe SUBCUT SCH (19:32)
[2019-11-22] MEDS: oxyCODONE 5 MG Tab PO PRN ×3 (05:58→22:11)
[2019-11-22] MEDS: Acetaminophen 325 MG Tab PO PRN ×3 (06:01→22:11)
[2019-11-22] MEDS: Multivitamin Tab PO SCH (08:00)
[2019-11-22] MEDS: LYRICA PO SCH ×2 (08:00→19:02)
[2019-11-22] MEDS: DULoxetine 30 MG Cap PO SCH (08:00)
[2019-11-22] MEDS: Propranolol 10 MG Tab PO SCH ×2 (08:00→19:02)
[2019-11-22] MEDS: Nicotine 21 MG/24 Hr Patch TRDERM SCH (08:00)
[2019-11-22] MEDS: Enoxaparin 40 MG/0.4 ML Syringe SUBCUT SCH (19:02)
[2019-11-23] MEDS: oxyCODONE 5 MG Tab PO PRN ×3 (06:14→22:20)
[2019-11-23] MEDS: Acetaminophen 325 MG Tab PO PRN ×3 (06:16→22:20)
[2019-11-23] MEDS: Propranolol 10 MG Tab PO SCH ×2 (07:43→20:07)
[2019-11-23] MEDS: Nicotine 21 MG/24 Hr Patch TRDERM SCH (07:43)
[2019-11-23] MEDS: LYRICA PO SCH ×2 (07:43→20:07)
[2019-11-23] MEDS: Multivitamin Tab PO SCH (07:44)
[2019-11-23] MEDS: DULoxetine 30 MG Cap PO SCH (07:44)
[2019-11-23] MEDS: Enoxaparin 40 MG/0.4 ML Syringe SUBCUT SCH (20:06)
[2019-11-24] MEDS: oxyCODONE 5 MG Tab PO PRN ×3 (06:42→23:15)
[2019-11-24] MEDS: Acetaminophen 325 MG Tab PO PRN ×3 (06:43→23:16)
[2019-11-24] MEDS: LYRICA PO SCH ×2 (07:24→19:37)
[2019-11-24] MEDS: Propranolol 10 MG Tab PO SCH ×2 (07:24→19:35)
[2019-11-24] MEDS: Nicotine 21 MG/24 Hr Patch TRDERM SCH (07:24)
[2019-11-24] MEDS: DULoxetine 30 MG Cap PO SCH (07:24)
[2019-11-24] MEDS: Multivitamin Tab PO SCH (07:25)
[2019-11-24] MEDS: Enoxaparin 40 MG/0.4 ML Syringe SUBCUT SCH (19:36)
[2019-11-25] MEDS: oxyCODONE 5 MG Tab PO PRN ×3 (06:07→22:11)
[2019-11-25] MEDS: Acetaminophen 325 MG Tab PO PRN ×3 (06:08→22:12)
[2019-11-25] MEDS: Propranolol 10 MG Tab PO SCH ×2 (07:42→20:36)
[2019-11-25] MEDS: Multivitamin Tab PO SCH (07:43)
[2019-11-25] MEDS: DULoxetine 30 MG Cap PO SCH (07:43)
[2019-11-25] MEDS: LYRICA PO SCH ×2 (07:43→20:36)
[2019-11-25] MEDS: Nicotine 21 MG/24 Hr Patch TRDERM SCH (07:44)
[2019-11-25] MEDS: Enoxaparin 40 MG/0.4 ML Syringe SUBCUT SCH (20:37)
[2019-11-26] MEDS: Acetaminophen 325 MG Tab PO PRN ×3 (06:06→22:04)
[2019-11-26] MEDS: oxyCODONE 5 MG Tab PO PRN ×3 (06:07→22:05)
[2019-11-26] MEDS: Propranolol 10 MG Tab PO SCH ×2 (08:08→19:38)
[2019-11-26] MEDS: LYRICA PO SCH ×2 (08:08→19:38)
[2019-11-26] MEDS: Nicotine 21 MG/24 Hr Patch TRDERM SCH (08:09)
[2019-11-26] MEDS: DULoxetine 30 MG Cap PO SCH (08:09)
[2019-11-26] MEDS: Multivitamin Tab PO SCH (08:09)
[2019-11-26] MEDS: Enoxaparin 40 MG/0.4 ML Syringe SUBCUT SCH (19:39)
[2019-11-26] MEDS: Temazepam 15 MG Cap PO PRN (22:04)
[2019-11-27] MEDS: oxyCODONE 5 MG Tab PO PRN ×3 (06:05→22:05)
[2019-11-27] MEDS: Acetaminophen 325 MG Tab PO PRN ×3 (06:06→22:06)
[2019-11-27] MEDS: Multivitamin Tab PO SCH (07:32)
[2019-11-27] MEDS: Propranolol 10 MG Tab PO SCH ×2 (07:33→20:08)
[2019-11-27] MEDS: DULoxetine 30 MG Cap PO SCH (07:33)
[2019-11-27] MEDS: LYRICA PO SCH ×2 (07:33→20:00)
[2019-11-27] MEDS: Nicotine 21 MG/24 Hr Patch TRDERM SCH (07:34)
[2019-11-27] MEDS: Enoxaparin 40 MG/0.4 ML Syringe SUBCUT SCH (20:00)
[2019-11-27] MEDS: Temazepam 15 MG Cap PO PRN (22:05)
[2019-11-28] MEDS: oxyCODONE 5 MG Tab PO PRN ×3 (06:05→22:05)
[2019-11-28] MEDS: Acetaminophen 325 MG Tab PO PRN ×3 (06:06→22:08)
[2019-11-28] MEDS: Nicotine 21 MG/24 Hr Patch TRDERM SCH (07:47)
[2019-11-28] MEDS: Multivitamin Tab PO SCH (07:47)
[2019-11-28] MEDS: DULoxetine 30 MG Cap PO SCH (07:48)
[2019-11-28] MEDS: Propranolol 10 MG Tab PO SCH ×2 (07:48→20:06)
[2019-11-28] MEDS: LYRICA PO SCH ×2 (07:48→20:06)
--- NOTE | 2019-11-28 09:05 | PCM.PN ---
- General Info Date of Service: 11/28/19 Functional Status: Denies: Pain Controlled - Review of Systems General: Reports: No Symptoms HEENT: Reports: No Symptoms Pulmonary: Reports: No Symptoms Cardiovascular: Reports: No Symptoms Gastrointestinal: Reports: No Symptoms Genitourinary: Reports: No Symptoms Musculoskeletal: Reports: Joint Pain (right hip pain and deformity) Skin: Reports: No Symptoms. Denies: Bruising Neurological: Reports: No Symptoms. Denies: Confusion, Dizziness, Headache, Numbness, Tingling, Weakness Psychiatric: Reports: No Symptoms - Patient Data Vitals - Most Recent: Last Vital Signs Temp 37.1 C 11/27/19 20:00 Pulse 73 11/28/19 07:48 Resp 16 11/27/19 20:00 BP 112/64 11/28/19 07:48 Pulse Ox 100 11/27/19 20:00 Weight - Most Recent: 77.474 kg Med Orders - Current: Current Medications Acetaminophen (Tylenol) 650 mg PO Q8H PRN PRN Reason: Pain Last Admin: 11/28/19 06:06 Dose: 650 mg Duloxetine HCl (Cymbalta) 30 mg PO DAILY [facility] Last Admin: 11/28/19 07:48 Dose: 30 mg Enoxaparin Sodium (Lovenox) 40 mg SUBCUT Q24H [facility] Last Admin: 11/27/19 20:00 Dose: 40 mg Magnesium Hydroxide (Milk Of Magnesia) 30 ml PO Q12H PRN PRN Reason: Constipation Multivitamins/Minerals/Vitamin C (Tab-A-Deyanira) 1 tab PO DAILY [facility] Last Admin: 11/28/19 07:47 Dose: 1 tab Nicotine (Habitrol) 21 mg TRDERM DAILY [facility] Last Admin: 11/28/19 07:47 Dose: 21 mg Ondansetron HCl (Zofran Odt) 4 mg PO Q4H PRN PRN Reason: nausea, able to take PO Oxycodone HCl (Oxycodone) 5 - 10 mg PO Q6H PRN PRN Reason: Pain Last Admin: 11/28/19 06:05 Dose: 10 mg Pregabalin (Lyrica) 75 mg PO BID [facility] Last Admin: 11/28/19 07:48 Dose: 75 mg Propranolol HCl (Inderal) 10 mg PO BID [facility] Last Admin: 02/29/20 07:48 Dose: 10 mg Temazepam (Restoril) 15 mg PO BEDTIME PRN PRN Reason: Insomnia Last Admin: 11/27/19 22:05 Dose: 15 mg Discontinued Medications Acetaminophen (Tylenol) 650 mg PO Q4H PRN PRN Reason: Pain (Mild 1-3)/fever Last Admin: 11/11/19 05:01 Dose: 650 mg Oxycodone HCl (Oxycodone) 5 mg PO Q4H PRN PRN Reason: Pain Last Admin: 11/14/19 07:29 Dose: 5 mg Oxycodone HCl (Oxycodone) 5 mg PO Q6H PRN PRN Reason: Pain Last Admin: 11/20/19 04:10 Dose: 5 mg Oxycodone/Acetaminophen (Percocet 325-5 Mg) 1 - 2 tab PO Q4H PRN PRN Reason: Pain Last Admin: 11/11/19 03:10 Dose: 2 tab Pregabalin (Lyrica) 75 mg PO BID [facility] Last Admin: 11/10/19 20:30 Dose: Not Given - Exam Quality Assessment: No: Supplemental Oxygen General: Alert, Oriented, Cooperative Neck: Supple Lungs: Clear to Auscultation, Normal Respiratory Effort Cardiovascular: Regular Rate, Regular Rhythm GI/Abdominal Exam: Soft, Non-Tender Back Exam: Normal Inspection, Full Range of Motion Extremities: Other (pain anddeformit of the right hip, pt denies new injury or trauma, advised when he woke up this morning he had increased pain and "it looked funny", not able to bear any weight on the leg) Peripheral Pulses: 2+: Radial (L), Posterior Tibial (L), Posterior Tibial (R) Skin: Warm, Dry, Intact Wound/Incisions: Healing Well Neurological: No New Focal Deficit Psy/Mental Status: Alert, Normal Affect, Normal Mood Sepsis Event Note - Evaluation Sepsis Screening Result: No Definite Risk - Focused Exam Vital Signs: Vital Signs Pulse BP 11/28/19 07:48 73 112/64 Date Exam was Performed: 11/28/19 Time Exam was Performed: 09:17 - Problem List & Annotations (1) Hip fracture requiring operative repair SNOMED Code(s): 865545277 Code(s): S72.009A - FRACTURE OF UNSP PART OF NECK OF UNSP FEMUR, INIT Status: Acute Priority: High Current Visit: No Qualifiers: Encounter type: sequela Fracture type: closed Laterality: right Qualified Code(s): S72.001S - Fracture of unspecified part of neck of right femur, sequela - Problem List Review Problem List Initiated/Reviewed/Updated: Yes - My Orders Last 24 Hours: My Active Orders 11/28/19 09:01 Hip Min 2V or 3V w Pelvis Rt [CR] Routine - Plan Plan:: an xray of the right hip was performed and compared to previous, the images appear to be unchanged. will have the radiologist review the images, will continue to monitor pts and make changes as needed
[2019-11-28] MEDS: Enoxaparin 40 MG/0.4 ML Syringe SUBCUT SCH (20:05)
[2019-11-28] MEDS: Temazepam 15 MG Cap PO PRN (22:05)
[2019-11-29] MEDS: oxyCODONE 5 MG Tab PO PRN ×3 (05:59→21:56)
[2019-11-29] MEDS: Acetaminophen 325 MG Tab PO PRN ×3 (06:00→21:56)
[2019-11-29] MEDS: Nicotine 21 MG/24 Hr Patch TRDERM SCH (07:37)
[2019-11-29] MEDS: Multivitamin Tab PO SCH (07:42)
[2019-11-29] MEDS: Propranolol 10 MG Tab PO SCH ×2 (07:42→20:11)
[2019-11-29] MEDS: DULoxetine 30 MG Cap PO SCH (07:42)
[2019-11-29] MEDS: LYRICA PO SCH ×2 (07:42→20:11)
[2019-11-29] MEDS: Enoxaparin 40 MG/0.4 ML Syringe SUBCUT SCH (20:12)
[2019-11-29] MEDS: Temazepam 15 MG Cap PO PRN (21:57)
[2019-11-30] MEDS: oxyCODONE 5 MG Tab PO PRN ×3 (06:02→22:03)
[2019-11-30] MEDS: Acetaminophen 325 MG Tab PO PRN ×3 (06:03→22:03)
[2019-11-30] MEDS: DULoxetine 30 MG Cap PO SCH (08:09)
[2019-11-30] MEDS: Propranolol 10 MG Tab PO SCH ×2 (08:09→19:43)
[2019-11-30] MEDS: LYRICA PO SCH ×2 (08:09→19:42)
[2019-11-30] MEDS: Multivitamin Tab PO SCH (08:09)
[2019-11-30] MEDS: Nicotine 21 MG/24 Hr Patch TRDERM SCH (08:10)
[2019-11-30] MEDS: Enoxaparin 40 MG/0.4 ML Syringe SUBCUT SCH (19:43)
[2019-11-30] MEDS: Temazepam 15 MG Cap PO PRN (22:04)
[2019-12-01] MEDS: Acetaminophen 325 MG Tab PO PRN ×3 (06:55→22:58)
[2019-12-01] MEDS: oxyCODONE 5 MG Tab PO PRN ×3 (06:55→22:57)
[2019-12-01] MEDS: Multivitamin Tab PO SCH (07:59)
[2019-12-01] MEDS: LYRICA PO SCH ×2 (07:59→19:34)
[2019-12-01] MEDS: DULoxetine 30 MG Cap PO SCH (08:00)
[2019-12-01] MEDS: Propranolol 10 MG Tab PO SCH ×2 (08:00→19:33)
[2019-12-01] MEDS: Nicotine 21 MG/24 Hr Patch TRDERM SCH (08:00)
[2019-12-01 12:32] LABS: CHLORIDE,CL 99 mEq/L (98-106); SODIUM,NA 136 mEq/L (136-145)
[2019-12-01] MEDS: Enoxaparin 40 MG/0.4 ML Syringe SUBCUT SCH (19:34)
[2019-12-01] MEDS: Temazepam 15 MG Cap PO PRN (22:59)
[2019-12-02] MEDS: oxyCODONE 5 MG Tab PO PRN ×3 (06:44→23:04)
[2019-12-02] MEDS: Acetaminophen 325 MG Tab PO PRN ×3 (06:45→23:05)
[2019-12-02] MEDS: DULoxetine 30 MG Cap PO SCH (07:06)
[2019-12-02] MEDS: Nicotine 21 MG/24 Hr Patch TRDERM SCH (07:06)
[2019-12-02] MEDS: LYRICA PO SCH ×2 (07:06→19:40)
[2019-12-02] MEDS: Propranolol 10 MG Tab PO SCH ×2 (07:07→19:40)
[2019-12-02] MEDS: Multivitamin Tab PO SCH (07:07)
[2019-12-02] MEDS: Enoxaparin 40 MG/0.4 ML Syringe SUBCUT SCH (19:39)
[2019-12-02] MEDS: Ibuprofen 200 MG Tab PO PRN (19:45)
[2019-12-02] MEDS: Temazepam 15 MG Cap PO PRN (23:04)
[2019-12-03] MEDS: Ibuprofen 200 MG Tab PO PRN ×3 (02:46→19:28)
[2019-12-03] MEDS: oxyCODONE 5 MG Tab PO PRN ×3 (07:05→23:10)
[2019-12-03] MEDS: Acetaminophen 325 MG Tab PO PRN ×3 (07:05→23:11)
[2019-12-03] MEDS: LYRICA PO SCH ×2 (07:47→19:27)
[2019-12-03] MEDS: Nicotine 21 MG/24 Hr Patch TRDERM SCH (07:47)
[2019-12-03] MEDS: DULoxetine 30 MG Cap PO SCH (07:47)
[2019-12-03] MEDS: Multivitamin Tab PO SCH (07:48)
[2019-12-03] MEDS: Propranolol 10 MG Tab PO SCH ×2 (07:48→19:26)
[2019-12-03] MEDS: Enoxaparin 40 MG/0.4 ML Syringe SUBCUT SCH (19:23)
[2019-12-03] MEDS: Temazepam 15 MG Cap PO PRN (23:10)
[2019-12-04] MEDS: Ibuprofen 200 MG Tab PO PRN ×3 (04:56→19:59)
[2019-12-04] MEDS: DULoxetine 30 MG Cap PO SCH (07:23)
[2019-12-04] MEDS: Multivitamin Tab PO SCH (07:23)
[2019-12-04] MEDS: Nicotine 21 MG/24 Hr Patch TRDERM SCH (07:23)
[2019-12-04] MEDS: Propranolol 10 MG Tab PO SCH ×2 (07:23→19:45)
[2019-12-04] MEDS: Acetaminophen 325 MG Tab PO PRN ×3 (07:25→23:12)
[2019-12-04] MEDS: oxyCODONE 5 MG Tab PO PRN ×3 (07:25→23:12)
[2019-12-04] MEDS: LYRICA PO SCH ×2 (07:25→19:45)
[2019-12-04] MEDS: Enoxaparin 40 MG/0.4 ML Syringe SUBCUT SCH (19:45)
[2019-12-04] MEDS: Temazepam 15 MG Cap PO PRN (19:59)
[2019-12-05] MEDS: Ibuprofen 200 MG Tab PO PRN ×3 (02:01→19:23)
[2019-12-05] MEDS: oxyCODONE 5 MG Tab PO PRN ×3 (07:40→23:06)
[2019-12-05] MEDS: Nicotine 21 MG/24 Hr Patch TRDERM SCH (07:40)
[2019-12-05] MEDS: Multivitamin Tab PO SCH (07:40)
[2019-12-05] MEDS: DULoxetine 30 MG Cap PO SCH (07:40)
[2019-12-05] MEDS: LYRICA PO SCH ×2 (07:41→19:24)
[2019-12-05] MEDS: Propranolol 10 MG Tab PO SCH ×2 (07:41→19:24)
[2019-12-05] MEDS: Acetaminophen 325 MG Tab PO PRN ×3 (07:41→23:06)
[2019-12-05] MEDS: Enoxaparin 40 MG/0.4 ML Syringe SUBCUT SCH (19:25)
[2019-12-06] MEDS: Ibuprofen 200 MG Tab PO PRN ×3 (01:40→19:24)
[2019-12-06] MEDS: oxyCODONE 5 MG Tab PO PRN ×3 (06:21→23:04)
[2019-12-06] MEDS: LYRICA PO SCH ×2 (07:03→19:24)
[2019-12-06] MEDS: Acetaminophen 325 MG Tab PO PRN ×3 (07:04→23:03)
[2019-12-06] MEDS: Multivitamin Tab PO SCH (07:04)
[2019-12-06] MEDS: DULoxetine 30 MG Cap PO SCH (07:04)
[2019-12-06] MEDS: Nicotine 21 MG/24 Hr Patch TRDERM SCH (07:06)
[2019-12-06] MEDS: Propranolol 10 MG Tab PO SCH ×2 (07:06→19:25)
[2019-12-06] MEDS: Enoxaparin 40 MG/0.4 ML Syringe SUBCUT SCH (19:24)
[2019-12-06] MEDS: Temazepam 15 MG Cap PO PRN (19:25)
[2019-12-07] MEDS: Ibuprofen 200 MG Tab PO PRN ×2 (02:24→11:20)
[2019-12-07] MEDS: Nicotine 21 MG/24 Hr Patch TRDERM SCH (07:17)
[2019-12-07] MEDS: oxyCODONE 5 MG Tab PO PRN ×3 (07:17→23:03)
[2019-12-07] MEDS: DULoxetine 30 MG Cap PO SCH (07:18)
[2019-12-07] MEDS: LYRICA PO SCH ×2 (07:18→19:38)
[2019-12-07] MEDS: Propranolol 10 MG Tab PO SCH ×2 (07:18→19:38)
[2019-12-07] MEDS: Acetaminophen 325 MG Tab PO PRN ×3 (07:18→23:04)
[2019-12-07] MEDS: Multivitamin Tab PO SCH (07:18)
[2019-12-07] MEDS: Enoxaparin 40 MG/0.4 ML Syringe SUBCUT SCH (19:38)
[2019-12-07] MEDS: Temazepam 15 MG Cap PO PRN (21:54)
[2019-12-08] MEDS: Ibuprofen 200 MG Tab PO PRN ×3 (00:58→18:54)
[2019-12-08] MEDS: Nicotine 21 MG/24 Hr Patch TRDERM SCH (07:40)
[2019-12-08] MEDS: LYRICA PO SCH ×2 (07:40→19:34)
[2019-12-08] MEDS: DULoxetine 30 MG Cap PO SCH (07:40)
[2019-12-08] MEDS: Propranolol 10 MG Tab PO SCH ×2 (07:40→19:35)
[2019-12-08] MEDS: Multivitamin Tab PO SCH (07:40)
[2019-12-08] MEDS: Acetaminophen 325 MG Tab PO PRN ×3 (07:41→23:17)
[2019-12-08] MEDS: oxyCODONE 5 MG Tab PO PRN ×3 (07:42→23:17)
[2019-12-08] MEDS: Enoxaparin 40 MG/0.4 ML Syringe SUBCUT SCH (19:34)
[2019-12-08] MEDS: Temazepam 15 MG Cap PO PRN (22:02)
[2019-12-09] MEDS: Ibuprofen 200 MG Tab PO PRN ×3 (02:32→19:46)
[2019-12-09] MEDS: Nicotine 21 MG/24 Hr Patch TRDERM SCH (07:25)
[2019-12-09] MEDS: Propranolol 10 MG Tab PO SCH ×2 (07:32→19:47)
[2019-12-09] MEDS: Multivitamin Tab PO SCH (07:32)
[2019-12-09] MEDS: LYRICA PO SCH ×2 (07:32→19:47)
[2019-12-09] MEDS: DULoxetine 30 MG Cap PO SCH (07:32)
[2019-12-09] MEDS: Acetaminophen 325 MG Tab PO PRN ×3 (07:33→23:04)
[2019-12-09] MEDS: oxyCODONE 5 MG Tab PO PRN ×3 (07:33→23:03)
--- NOTE | 2019-12-09 08:52 | PCM.SN ---
- Free Text/Narrative Note: Patient's right hip has continued to cause him pain. Has had lump to right hip. Did see Dr. Ortiz and felt it was calcification although continued to get larger. Last evening, area did open up and now has had a fair amount of serosanguinous drainage. This am, area is much small, able to only express out a small amount of milky light brown drainage. Area was cultured. Will await results and contact .
[2019-12-09] MEDS: Enoxaparin 40 MG/0.4 ML Syringe SUBCUT SCH (19:47)
[2019-12-09] MEDS: Temazepam 15 MG Cap PO PRN (21:58)
[2019-12-10] MEDS: Ibuprofen 200 MG Tab PO PRN ×3 (02:17→19:49)
[2019-12-10] MEDS: Nicotine 21 MG/24 Hr Patch TRDERM SCH (07:38)
[2019-12-10] MEDS: LYRICA PO SCH ×2 (07:40→19:47)
[2019-12-10] MEDS: Multivitamin Tab PO SCH (07:41)
[2019-12-10] MEDS: Propranolol 10 MG Tab PO SCH ×2 (07:41→19:48)
[2019-12-10] MEDS: oxyCODONE 5 MG Tab PO PRN ×3 (07:42→23:36)
[2019-12-10] MEDS: DULoxetine 30 MG Cap PO SCH (07:42)
[2019-12-10] MEDS: Acetaminophen 325 MG Tab PO PRN ×3 (07:43→23:37)
[2019-12-10] MEDS: Enoxaparin 40 MG/0.4 ML Syringe SUBCUT SCH (19:47)
[2019-12-10] MEDS: Temazepam 15 MG Cap PO PRN (22:02)
[2019-12-11] MEDS: Ibuprofen 200 MG Tab PO PRN ×3 (02:25→20:13)
[2019-12-11] MEDS: oxyCODONE 5 MG Tab PO PRN ×2 (07:34→15:45)
[2019-12-11] MEDS: LYRICA PO SCH ×2 (07:35→20:08)
[2019-12-11] MEDS: Propranolol 10 MG Tab PO SCH ×2 (07:36→20:08)
[2019-12-11] MEDS: DULoxetine 30 MG Cap PO SCH (07:36)
[2019-12-11] MEDS: Multivitamin Tab PO SCH (07:36)
[2019-12-11] MEDS: Nicotine 21 MG/24 Hr Patch TRDERM SCH (07:37)
[2019-12-11] MEDS: Acetaminophen 325 MG Tab PO PRN ×2 (07:37→15:45)
--- NOTE | 2019-12-11 13:48 | PCM.PN ---
- General Info Date of Service: 12/11/19 Admission Dx/Problem (Free Text): S/P Open reduction and internal fixation of right hip fracture S/P severe delirium tremens from alcohol withdrawal Functional Status: Reports: Tolerating Diet, Ambulating. Denies: Pain Controlled - Review of Systems General: Reports: Fever, Weakness, Fatigue HEENT: Reports: No Symptoms Pulmonary: Denies: Shortness of Breath, Cough Cardiovascular: Denies: Chest Pain, Edema, Lightheadedness Gastrointestinal: Denies: Abdominal Pain, Nausea, Vomiting Genitourinary: Reports: No Symptoms Musculoskeletal: Reports: Joint Pain Skin: Reports: Other (open area to right hip) Neurological: Reports: No Symptoms - Patient Data Vitals - Most Recent: Last Vital Signs Temp 98.8 F 12/11/19 07:33 Pulse 82 12/11/19 07:36 Resp 16 12/11/19 07:33 BP 111/72 12/11/19 07:36 Pulse Ox 100 12/11/19 07:33 Weight - Most Recent: 173 lb 12.8 oz Rasheed Results Last 24 Hours: Microbiology 12/09/19 08:42 Wound Culture - Final Hip, Right Enterococcus Faecalis Med Orders - Current: Current Medications Acetaminophen (Tylenol) 650 mg PO Q8H PRN PRN Reason: Pain Last Admin: 12/11/19 07:37 Dose: 650 mg Duloxetine HCl (Cymbalta) 30 mg PO DAILY [facility] Last Admin: 12/11/19 07:36 Dose: 30 mg Enoxaparin Sodium (Lovenox) 40 mg SUBCUT Q24H [facility] Last Admin: 12/10/19 19:47 Dose: 40 mg Ibuprofen (Motrin) 600 mg PO Q6H PRN PRN Reason: Fever Last Admin: 12/11/19 10:42 Dose: 600 mg Magnesium Hydroxide (Milk Of Magnesia) 30 ml PO Q12H PRN PRN Reason: Constipation Multivitamins/Minerals/Vitamin C (Tab-A-Deyanira) 1 tab PO DAILY [facility] Last Admin: 12/11/19 07:36 Dose: 1 tab Nicotine (Habitrol) 21 mg TRDERM DAILY [facility] Last Admin: 12/11/19 07:37 Dose: 21 mg Ondansetron HCl (Zofran Odt) 4 mg PO Q4H PRN PRN Reason: nausea, able to take PO Oxycodone HCl (Oxycodone) 5 - 10 mg PO Q6H PRN PRN Reason: Pain Last Admin: 12/11/19 07:34 Dose: 10 mg Pregabalin (Lyrica) 75 mg PO BID [facility] Last Admin: 12/11/19 07:35 Dose: 75 mg Propranolol HCl (Inderal) 10 mg PO BID [facility] Last Admin: 12/11/19 07:36 Dose: 10 mg Temazepam (Restoril) 15 mg PO BEDTIME PRN PRN Reason: Insomnia Last Admin: 12/10/19 22:02 Dose: 15 mg Discontinued Medications Acetaminophen (Tylenol) 650 mg PO Q4H PRN PRN Reason: Pain (Mild 1-3)/fever Last Admin: 11/11/19 05:01 Dose: 650 mg Oxycodone HCl (Oxycodone) 5 mg PO Q4H PRN PRN Reason: Pain Last Admin: 11/14/19 07:29 Dose: 5 mg Oxycodone HCl (Oxycodone) 5 mg PO Q6H PRN PRN Reason: Pain Last Admin: 11/20/19 04:10 Dose: 5 mg Oxycodone/Acetaminophen (Percocet 325-5 Mg) 1 - 2 tab PO Q4H PRN PRN Reason: Pain Last Admin: 11/11/19 03:10 Dose: 2 tab Pregabalin (Lyrica) 75 mg PO BID [facility] Last Admin: 11/10/19 20:30 Dose: Not Given - Exam General: Alert, Oriented HEENT: Mucous Membr. Moist/[place] Neck: Supple Lungs: Clear to Auscultation, Normal Respiratory Effort Cardiovascular: Regular Rate, Regular Rhythm GI/Abdominal Exam: Normal Bowel Sounds, Soft, Non-Tender Extremities: Redness (right hip is now open, draining thick mucousy drainage. Erythema is noted. ) Wound/Incisions: Drainage, Erythema Neurological: No New Focal Deficit Psy/Mental Status: Alert Sepsis Event Note - Evaluation Sepsis Screening Result: No Definite Risk - Focused Exam Vital Signs: Vital Signs Temp Pulse Pulse Resp BP BP Pulse Ox 12/11/19 07:36 82 111/72 12/11/19 07:33 98.8 F 82 16 111/72 100 Date Exam was Performed: 12/11/19 Time Exam was Performed: 14:26 - Problem List & Annotations (1) Wound infection after surgery SNOMED Code(s): 64674535, 476561520 Code(s): T81.49XA - INFECTION FOLLOWING A PROCEDURE, OTHER SURGICAL SITE, INIT Status: Acute Priority: High Current Visit: Yes (2) Hip fracture requiring operative repair SNOMED Code(s): 752441246 Code(s): S72.009A - FRACTURE OF UNSP PART OF NECK OF UNSP FEMUR, INIT Status: Acute Priority: High Current Visit: Yes Qualifiers: Encounter type: sequela Fracture type: closed Laterality: right Qualified Code(s): S72.001S - Fracture of unspecified part of neck of right femur, sequela - Problem List Review Problem List Initiated/Reviewed/Updated: Yes - Assessment Assessment:: S/P ORIF, hip fracture Wound infection after surgery - Plan Plan:: an xray of the right hip was performed and compared to previous, the images appear to be unchanged. will have the radiologist review the images, will continue to monitor pts and make changes as needed 12-11-2019 Patient is s/p ORIF of right hip following a fracture. Patient has increased to weight bearing on right hip, ambulating with PT. Still requiring frequent pain meds. On 11-28-2019, patient noted a grape-like lump to his right hip along the incision. Area at that time had no warmth or redness. Xrays were taken which read increased calcification. On 12-01-2019, area was now enlarged to egg size, fluctuant mass noted. Ultrasound was done that did show fluid. Dr. Michel did contact Dr. Ortiz's office with question of possibly aspirating the area to rule out infection as was running low grade temps. Dr. Ortiz suggested patient be brought to [place] for him to evaluate the area. He was seen on that day, had additional xrays and was felt the enlarged area was due to calcification. No aspiration of the fluid was done. Has continued to be large in size, mild erythema and warmth. Labs have been monitored, WBC has remained stable. Late Saturday night/early Saturday morning, area did open up and drain a moderate amount of serosanguinous drainage. Did saturate several bandages. Wound culture was obtained at that time. Dr. Ortiz's office was notified of this and report was given to his nurse that wound opened up and they recommended to fax report once results were obtained. Culture report was finalized this am that showed enterococcus, susceptible to Levaquin, Ampicillin and Vancomycin. Dr. Ortiz was then contacted and informed. Per second hand report from nurse, surgeon is upset that there has been questionable care for 6 days in regards to this. However, wound only opened 2 days ago. Had first suggested that we transfer patient to [place] to receive treatment there, still waiting transfer agreement. Will start IV Levaquin.
[2019-12-11] MEDS: Levofloxacin/Dextrose 5%-Water 500 MG in Premix Bag 1 BAG IV SCH (15:12)
[2019-12-11] MEDS: Enoxaparin 40 MG/0.4 ML Syringe SUBCUT SCH (20:12)
[2019-12-11] MEDS: Temazepam 15 MG Cap PO PRN (21:58)
[2019-12-12] MEDS: Acetaminophen/oxyCODONE 325-5 MG Tab PO PRN ×3 (00:10→16:16)
[2019-12-12] MEDS: Ibuprofen 200 MG Tab PO PRN ×3 (02:08→19:26)
[2019-12-12] MEDS: Nicotine 21 MG/24 Hr Patch TRDERM SCH (07:43)
[2019-12-12] MEDS: Propranolol 10 MG Tab PO SCH ×2 (07:46→19:27)
[2019-12-12] MEDS: DULoxetine 30 MG Cap PO SCH (07:46)
[2019-12-12] MEDS: Multivitamin Tab PO SCH (07:47)
[2019-12-12] MEDS: LYRICA PO SCH ×2 (07:47→19:28)
[2019-12-12] MEDS: Levofloxacin/Dextrose 5%-Water 500 MG in Premix Bag 1 BAG IV SCH (14:37)
[2019-12-12] MEDS: Enoxaparin 40 MG/0.4 ML Syringe SUBCUT SCH (19:28)
[2019-12-12] MEDS: Temazepam 15 MG Cap PO PRN (22:08)
[2019-12-13] MEDS: Acetaminophen/oxyCODONE 325-5 MG Tab PO PRN ×2 (00:06→08:01)
[2019-12-13] MEDS: Ibuprofen 200 MG Tab PO PRN ×3 (03:16→19:59)
[2019-12-13] MEDS: Nicotine 21 MG/24 Hr Patch TRDERM SCH (07:58)
[2019-12-13] MEDS: DULoxetine 30 MG Cap PO SCH (08:00)
[2019-12-13] MEDS: LYRICA PO SCH ×2 (08:00→19:51)
[2019-12-13] MEDS: Propranolol 10 MG Tab PO SCH ×2 (08:00→19:50)
[2019-12-13] MEDS: Multivitamin Tab PO SCH (08:01)
[2019-12-13] MEDS: Levofloxacin/Dextrose 5%-Water 500 MG in Premix Bag 1 BAG IV SCH (14:22)
[2019-12-13] MEDS: Enoxaparin 40 MG/0.4 ML Syringe SUBCUT SCH (19:50)
[2019-12-13] MEDS: Temazepam 15 MG Cap PO PRN (22:10)
[2019-12-14] MEDS: Acetaminophen/oxyCODONE 325-5 MG Tab PO PRN ×2 (00:07→08:11)
[2019-12-14] MEDS: Ibuprofen 200 MG Tab PO PRN (04:44)
[2019-12-14] MEDS: Nicotine 21 MG/24 Hr Patch TRDERM SCH (07:38)
[2019-12-14] MEDS: Propranolol 10 MG Tab PO SCH (07:41)
[2019-12-14] MEDS: DULoxetine 30 MG Cap PO SCH (07:41)
[2019-12-14] MEDS: LYRICA PO SCH (07:41)
[2019-12-14] MEDS: Multivitamin Tab PO SCH (07:42)
[2019-12-14 07:43] VITALS: BP 122/68; PULSE 89
--- NOTE | 2019-12-14 09:03 | PCM.DCSUM1 ---
Discharge Summary - Hospital Course Free Text/Narrative:: Eamon is a 44 year old who was previously admitted to our swing bed after a ORIF of his right hip after a fall. Chronic alcohol user. While here during that stay, patient began having severe DTs. Was transferred to [place] and kept there in the ICU for a few days. Was febrile while there. Did have a complete work up for this, was on IV antibiotics but no source of infection was found. Was weaned off benzos and phenobarb and was stable so returned back here for physical therapy and strengthening. On arrival here,is calm, no fevers , tremors or anxiety. Diagnosis: Stroke: No Modified Fentress Scale: No Symptoms at All Modified Isaura Scale Score: 0 - Discharge Data Discharge Date: 12/14/19 Discharge Disposition: DC/Tfer to Acute Hospital 02 Condition: Fair - Referral to Home Health Primary Care Physician: PCP Unobtainable - Discharge Diagnosis/Problem(s) (1) Wound infection after surgery SNOMED Code(s): 23000840, 326074726 ICD Code: T81.49XA - INFECTION FOLLOWING A PROCEDURE, OTHER SURGICAL SITE, INIT Status: Acute Priority: High (2) Hip fracture requiring operative repair SNOMED Code(s): 952999143 ICD Code: S72.009A - FRACTURE OF UNSP PART OF NECK OF UNSP FEMUR, INIT Status: Acute Priority: High Qualifiers: Encounter type: sequela Fracture type: closed Laterality: right Qualified Code(s): S72.001S - Fracture of unspecified part of neck of right femur, sequela - Patient Summary/Data Complications: none Consults: Consultations 11/10/19 14:39 PT Evaluation and Treatment [CONS] Routine Hospital Course: Patient is stable. Has been in swing bed for several weeks now getting physical therapy. Is now walking more with walker, weight bearing as tolerated. Still asking for pain pills quite frequently. Appetite has been good. No increased anxiety, hallucinations or seizures. On October, patient noted a grape size lump to his right outer thigh incision. Xrays were done with no notable concerns, had noted calcification to area. Over the next 4 days, did continue to become larger in size. Tender and causing more pain. No real warmth or redness noted at site. Ultrasound was done which showed a fluid collection. Dr. Michel did contact Dr. Ortiz's office in regards to possibly aspirating the area. Surgeon advised to have patient seen in [place] by him. Repeat xrays were done, no aspiration was done. Continued to have egg-shaped area. WBC did continue to be normal. CRP did increase to 17. Did not develop much redness or warmth to the area. Early Saturday am on the , incision did rupture open and a large amount of fluid was noted from the area. Culture was obtained. On Saturday, culture did show enterococcus and IV levaquin was started. Dr. Ortiz was again notified. Recommended him to be transferred to [place] for I & D today with possible removal of hardware if needed. Wound today has improved. Less redness. Still has a moderate amount of serous drainage on the bandage. No fevers. Transferred to [place] with his brother for procedure. - Patient Instructions Diet: NPO Activity: As Tolerated Other/Special Instructions: Transfer to Dr. Ortiz at [facility] for I & D with possible hardware removal of right hip - Discharge Plan *PRESCRIPTION DRUG MONITORING PROGRAM REVIEWED*: No *COPY OF PRESCRIPTION DRUG MONITORING REPORT IN PATIENT FELIX: No Prescriptions/Med Rec: DULoxetine [Cymbalta] 30 mg PO DAILY #30 cap Multivitamins [Tab-A-Deyanira] 1 tab PO DAILY #30 tablet Pregabalin [Lyrica] 75 mg PO BID #60 cap Home Medications: Home Meds Propranolol [Inderal] 10 mg PO BID 10/23/19 [History] Acetaminophen/oxyCODONE [Percocet 325-5 MG] 1 - 2 tab PO Q4H PRN 11/10/19 [ History] DULoxetine [Cymbalta] 30 mg PO DAILY #30 cap 12/14/19 [Rx] Multivitamins [Tab-A-Deyanira] 1 tab PO DAILY #30 tablet 12/14/19 [Rx] Pregabalin [Lyrica] 75 mg PO BID #60 cap 12/14/19 [Rx] Oxygen Therapy Mode: Nasal Cannula - Discharge Summary/Plan Comment DC Time >30 min.: No - General Info Date of Service: 12/14/19 Admission Dx/Problem (Free Text: S/P Open reduction and internal fixation of right hip fracture S/P severe delirium tremens from alcohol withdrawal Functional Status: Reports: Pain Controlled, Tolerating Diet, Ambulating - Review of Systems General: Denies: Fever, Weakness, Fatigue, Malaise HEENT: Reports: No Symptoms Pulmonary: Denies: Shortness of Breath, Cough Cardiovascular: Denies: Chest Pain, Edema, Lightheadedness Gastrointestinal: Denies: Abdominal Pain, Nausea, Vomiting Genitourinary: Reports: No Symptoms Musculoskeletal: Reports: Leg Pain, Joint Pain Skin: Reports: Other (open incision to right hip) Neurological: Reports: Weakness Psychiatric: Reports: No Symptoms - Patient Data Vitals - Most Recent: Last Vital Signs Temp 98.7 F 12/14/19 08:00 Pulse 89 12/14/19 08:00 Resp 16 12/14/19 08:00 BP 122/68 12/14/19 08:00 Pulse Ox 99 12/14/19 08:00 Weight - Most Recent: 173 lb 12.8 oz Med Orders - Current: Current Medications Duloxetine HCl (Cymbalta) 30 mg PO DAILY [facility] Last Admin: 12/14/19 07:41 Dose: 30 mg Enoxaparin Sodium (Lovenox) 40 mg SUBCUT Q24H [facility] Last Admin: 12/13/19 19:50 Dose: 40 mg Levofloxacin/Dextrose 500 mg/ (Premix) 100 mls @ 100 mls/hr IV Q24H [facility] Last Admin: 12/13/19 14:22 Dose: 100 mls/hr Ibuprofen (Motrin) 600 mg PO Q6H PRN PRN Reason: Fever Last Admin: 12/14/19 04:44 Dose: 600 mg Magnesium Hydroxide (Milk Of Magnesia) 30 ml PO Q12H PRN PRN Reason: Constipation Multivitamins/Minerals/Vitamin C (Tab-A-Deyanira) 1 tab PO DAILY [facility] Last Admin: 12/14/19 07:42 Dose: Not Given Nicotine (Habitrol) 21 mg TRDERM DAILY [facility] Last Admin: 12/14/19 07:38 Dose: 21 mg Ondansetron HCl (Zofran Odt) 4 mg PO Q4H PRN PRN Reason: nausea, able to take PO Oxycodone/Acetaminophen (Percocet 325-5 Mg) 2 tab PO Q8H PRN PRN Reason: Pain (severe 7-10) Last Admin: 12/14/19 08:11 Dose: 2 tab Pregabalin (Lyrica) 75 mg PO BID [facility] Last Admin: 12/14/19 07:41 Dose: 75 mg Propranolol HCl (Inderal) 10 mg PO BID [facility] Last Admin: 12/14/19 07:41 Dose: 10 mg Temazepam (Restoril) 15 mg PO BEDTIME PRN PRN Reason: Insomnia Last Admin: 12/13/19 22:10 Dose: 15 mg Discontinued Medications Acetaminophen (Tylenol) 650 mg PO Q4H PRN PRN Reason: Pain (Mild 1-3)/fever Last Admin: 11/11/19 05:01 Dose: 650 mg Acetaminophen (Tylenol) 650 mg PO Q8H PRN PRN Reason: Pain Last Admin: 12/11/19 15:45 Dose: 650 mg Oxycodone HCl (Oxycodone) 5 mg PO Q4H PRN PRN Reason: Pain Last Admin: 11/14/19 07:29 Dose: 5 mg Oxycodone HCl (Oxycodone) 5 mg PO Q6H PRN PRN Reason: Pain Last Admin: 11/20/19 04:10 Dose: 5 mg Oxycodone HCl (Oxycodone) 5 - 10 mg PO Q6H PRN PRN Reason: Pain Last Admin: 12/11/19 15:45 Dose: 10 mg Oxycodone/Acetaminophen (Percocet 325-5 Mg) 1 - 2 tab PO Q4H PRN PRN Reason: Pain Last Admin: 11/11/19 03:10 Dose: 2 tab Pregabalin (Lyrica) 75 mg PO BID [facility] Last Admin: 11/10/19 20:30 Dose: Not Given - Exam General: Reports: Alert, Oriented Neck: Reports: Supple Lungs: Reports: Clear to Auscultation, Normal Respiratory Effort Cardiovascular: Reports: Regular Rate, Regular Rhythm GI/Abdominal Exam: Normal Bowel Sounds, Soft, Non-Tender Extremities: Leg Pain Skin: Reports: Warm, Dry Wound/Incisions: Reports: Drainage, Erythema Improving
== END 2019-12-14 09:10 | DRG 863 ==
LOC: CC.MS 14:39 → UNDOADMIN 16:04 → CC.MS 16:04
PROVIDERS: ADMIT Physician Assistant Medical; ATTEND Family Medicine
DX: T81.49XA Infection following a procedure, other surgical site, initial encounter (principal); F10.231 Alcohol dependence with withdrawal delirium; S72.001S Fracture of unspecified part of neck of right femur, sequela; I10 Essential (primary) hypertension; B95.2 Enterococcus as the cause of diseases classified elsewhere; M25.551 Pain in right hip; Y83.8 Other surgical procedures as the cause of abnormal reaction of the patient, or of later complication, without mention of misadventure at the time of the procedure; Z79.899 Other long term (current) drug therapy; Z98.890 Other specified postprocedural states
CPT/HCPCS: 36415; 76881-RT; 80048; 85025; 86140; 87070; 87077; 87186; 97110-GP; 97164-GP; 97530-GP; A9270-GY; J1650; J1956

== ENCOUNTER 2019-12-18 10:25 | Inpatient (IN) | payer MEDICAID ==
[2019-12-18] MEDS ORDERED: Ondansetron 4 MG Tab.DIS PO PRN (11:02)
[2019-12-18] MEDS ORDERED: Enoxaparin 40 MG/0.4 ML Syringe SUBCUT SCH (14:00)
--- NOTE | 2019-12-18 14:00 | PCM.HP.2 ---
H&P History of Present Illness - General Date of Service: 12/18/19 Admit Problem/Dx: Swing Bed Admission Right Proximal Femur Osteomyelitis S/P ORIF right hip S/P I & D with removal of hardware S/P alcohol withdrawals Source of Information: Patient History Limitations: Reports: No Limitations - History of Present Illness Initial Comments - Free Text/Narative: Eamon is a 44 year old male who presents for admission to swing bed. He had fallen and sustained a right hip fracture. He underwent ORIF of his right hip by Dr. Ortiz and was subsequently admitted to our swing bed unit for rehab. Is a known chronic alcohol user. During previous swing bed stay, developed severe DTs. Was then transferred to [place] where he was detoxed in ICU. Was febrile at that time. Had complete workup. Was treated with IV antibiotics, but no source of infection was identified. Was readmitted to our swing bed 11/10/2019 for further physical therapy. Was progressing well with PT. On 11/28/2019 a grape size lump formed on hip right outer thigh incision. Xrays were completed at that time with no notable concerns. Over the following 4 days, area became larger in size and more tender. Did not have warmth or erythema. Ultrasound was completed which showed a fluid collection. Dr. Michel then contacted Dr. Ortiz, patients orthopedic surgeon, who recommended he be seen and evaluated in clinic. Patient then had repeat xrays, but no aspiration completed. Came back to swing bed following appointment. Area continued to be same. WBC remained normal. CRP increased to 17. Area remained without any significant redness or erythema. grader marker on December 08, incision ruptured and large amount of fluid drained from the area. Culture was obtained at time of rupture. Culture showed enterococcus with sensitivity to Levaquin. Dr. Ortiz was notified and recommended transfer [place] [facility] [place] and possible removal of hardware. Patient was transferred to [facility] and did have I & D as well as removal of hardware of right proximal femur fracture. Did have notable osteomyelitis of proximal right femur during surgery. PICC line was placed and patient will be admitted to our swing bed unit for continued PT and IV antibiotics. Upon admission, patient offers no complaints other than right hip pain. He reports it is more painful currently after the drive here. Has good ROM and CMS. Mepilex in place is CDI. He offers no other complaints. Location: Reports: Lower Extremity, Right Quality: Reports: Ache Associated Symptoms: Reports: No Other Symptoms Right Hip Pain Score (Numeric/FACES): 5 - Related Data Allergies/Adverse Reactions: Allergies Allergy/AdvReac Type Severity Reaction Status Date / Time No Known Allergies Allergy Verified 12/18/19 10:45 Home Medications: Home Meds Propranolol [Inderal] 10 mg PO BID 10/23/19 [History] DULoxetine [Cymbalta] 30 mg PO DAILY #30 cap 12/14/19 [Rx] Multivitamins [Tab-A-Deyanira] 1 tab PO DAILY #30 tablet 12/14/19 [Rx] Pregabalin [Lyrica] 75 mg PO BID #60 cap 12/14/19 [Rx] Acetaminophen 650 mg PO Q8H 12/18/19 [History] Aspirin [Halfprin] 81 mg PO DAILY 12/18/19 [History] Cyclobenzaprine [Flexeril] 10 mg PO TID PRN 12/18/19 [History] Docusate Sodium [Colace] 100 mg PO DAILY PRN 12/18/19 [History] Ferrous Sulfate [Iron] 325 mg PO BID 12/18/19 [History] HYDROmorphone [Dilaudid] 2 - 4 mg PO Q6H PRN 12/18/19 [History] Ibuprofen [Motrin] 600 mg PO Q6H PRN 12/18/19 [History] Magnesium Hydroxide [Milk of Magnesia] 30 ml PO BID PRN 12/18/19 [History] Temazepam 15 mg PO BEDTIME PRN 12/18/19 [History] Past Medical History Cardiovascular History: Reports: Hypertension, Other (See Below) Other Cardiovascular History: mitral valve prolapse Respiratory History: Reports: Asthma Musculoskeletal History: Reports: Fracture Neurological History: Reports: Concussion, Neuropathy, Peripheral Psychiatric History: Reports: Addiction, Autism, Depression Other Psychiatric History: Past medication trials include the following according to the patient: Fluoxetine, Sertraline, Buproprion, Escitalopram, Venlafaxine, and Seroquel. He reports being off the Seroquel for over a year however pharmacy records show it was filled in April,; July,, and September,. Patient states he has a upper caser from [facility], sees an addiction counselor and was seeing Dr. Oakes, Psychiatrist. He is unable to remember last time he saw Dr. Oakes. Hematologic History: Reports: Blood Transfusion(s) Dermatologic History: Reports: Eczema - Past Surgical History HEENT Surgical History: Reports: Myringotomy w Tube(s), Tonsillectomy Respiratory Surgical History: Reports: None Neurological Surgical History: Reports: None Musculoskeletal Surgical History: Reports: ORIF Other Musculoskeletal Surgeries/Procedures:: I & D with removal of hardware right proximal femur Dermatological Surgical History: Reports: None Social & Family History - Family History Family Medical History: Noncontributory - Tobacco Use Smoking Status *Q: Current Every Day Smoker Years of Tobacco use: 30 Packs/Tins Daily: 1 - Caffeine Use Caffeine Use: Reports: Soda - Alcohol Use Days Per Week of Alcohol Use: 7 Number of Drinks Per Day: 6 Total Drinks Per Week: 42 - Recreational Drug Use Recreational Drug Use: No H&P Review of Systems - Review of Systems: Review Of Systems: Comprehensive ROS is negative, except as noted in HPI. General: Denies: Fever, Chills, Malaise, Weakness, Fatigue HEENT: Reports: No Symptoms Pulmonary: Reports: No Symptoms. Denies: Shortness of Breath, Cough Cardiovascular: Reports: No Symptoms. Denies: Chest Pain, Palpitations, Dyspnea on Exertion, Edema, Lightheadedness, Syncope Gastrointestinal: Reports: No Symptoms Genitourinary: Reports: No Symptoms Musculoskeletal: Reports: Joint Pain (right hip) Skin: Reports: Other (incision right hip). Denies: Erythema Psychiatric: Reports: No Symptoms. Denies: Confusion, Anxiety, Agitation, Cravings, Hallucinations Exam - Exam Exam: See Below - Vital Signs Weight: 180 lb 3.2 oz - Exam Quality Assessment: Central Line/PICC, DVT Prophylaxis General: Alert, Oriented, 4 Neck: Supple, Trachea Midline, 2 Lungs: Clear to Auscultation, Normal Respiratory Effort Cardiovascular: Regular Rate, Regular Rhythm GI/Abdominal Exam: Normal Bowel Sounds, Soft, Non-Tender, No Organomegaly, No Distention, No Abnormal Bruit, No Mass, Pelvis Stable Back Exam: Normal Inspection, Full Range of Motion, NT Extremities: Normal Inspection, Normal Range of Motion, No Pedal Edema, Normal Capillary Refill, Leg Pain (right hip). No: Increased Warmth Peripheral Pulses: 2+: Dorsalis Pedis (R) Skin: Warm, Dry, Incision (right hip ) Neurological: Cranial Nerves Intact, Sensation Intact Neuro Extensive - Mental Status: Alert, Oriented x3, Normal Mood/Affect, Normal Cognition, Memory Intact, Other (no tremors) Psychiatric: Alert, Normal Affect, Normal Mood. No: Anxious - Patient Data Result Diagrams: 12/19/19 15:25 12/19/19 15:25 Sepsis Event Note - Evaluation Sepsis Screening Result: No Definite Risk - Problem List (1) Osteomyelitis of right hip SNOMED Code(s): 5874229 ICD Code: M86.9 - OSTEOMYELITIS, UNSPECIFIED Status: Acute Current Visit : Yes (2) History of open reduction and internal fixation (ORIF) procedure SNOMED Code(s): 266119892 ICD Code: Z98.890 - OTHER SPECIFIED POSTPROCEDURAL STATES Status: Acute Current Visit: Yes (3) S/P hardware removal SNOMED Code(s): 586839697, 033910105 ICD Code: Z98.890 - OTHER SPECIFIED POSTPROCEDURAL STATES Status: Acute Current Visit: Yes (4) Alcohol abuse SNOMED Code(s): 86784879 ICD Code: F10.10 - ALCOHOL ABUSE, UNCOMPLICATED Status: Chronic Current Visit: No Problem List Initiated/Reviewed/Updated: Yes Orders Last 24hrs: Active Orders 24 hr Category Date Time Status Dressing Change [Wound Care] [RC] 08,1999 Care 12/18/19 11:06 Active PT Evaluation and Treatment [CONS] Routine Cons 12/18/19 11:11 Active Heparin Sodium [Heparin Lock Flush 100 Units/ML] Med 12/19/19 08:00 Active 300 units FLUSH DAILY Nicotine [Habitrol] Med 12/19/19 08:00 Active 21 mg TRDERM DAILY Ondansetron [Zofran ODT] Med 12/18/19 11:02 Active 4 mg PO Q8H PRN Vancomycin 1 gm Med 12/18/19 16:00 Active Sodium Chloride 0.9% [Normal Saline] 250 ml IV Q8H Medication Orders Heparin Sodium (Porcine) (Heparin Lock Flush 100 Units/Ml) 300 units FLUSH DAILY [facility] Vancomycin HCl 1 gm/ Sodium (Chloride) 250 mls @ 167 mls/hr IV Q8H [facility] Nicotine (Habitrol) 21 mg TRDERM DAILY [facility] Ondansetron HCl (Zofran Odt) 4 mg PO Q8H PRN PRN Reason: Nausea/Vomiting Assessment/Plan Comment:: Assessment Swingbed Admission Right Proximal Femur Osteomyelitis S/P ORIF right hip S/P I & D with removal of hardware right hip Hx Alcohol Withdrawals Plan Patient will be admitted to swing bed for ongoing PT and IV antibiotics. PICC line in place and orders for vancomycin. He is to be toe touch weight bearing to [facility]. See admit orders.
[2019-12-18] MEDS ORDERED: Temazepam 15 MG Cap PO PRN (14:10)
[2019-12-18] MEDS ORDERED: Docusate Sodium 100 MG Cap PO PRN ×2 (14:10→14:14)
[2019-12-18] MEDS ORDERED: Polyethylene Glycol 3350 Powder 17 GM Packet PO PRN (14:10)
[2019-12-18] MEDS ORDERED: Magnesium Hydroxide 400 MG/5 ML Susp 30 ML Cup PO PRN (14:14)
[2019-12-18] MEDS: HYDROmorphone 2 MG Tab PO PRN ×2 (14:52→23:02)
[2019-12-18] MEDS: Acetaminophen 325 MG Tab PO PRN ×2 (14:56→23:02)
[2019-12-18] MEDS ORDERED: Acetaminophen 325 MG Tab PO SCH (16:00)
[2019-12-18] MEDS: Ibuprofen 200 MG Tab PO PRN (18:24)
[2019-12-18] MEDS: Ferrous Sulfate 324 MG Tab.EC PO SCH (19:37)
[2019-12-18] MEDS: Pregabalin 25 MG Cap PO SCH (19:37)
[2019-12-18] MEDS: Propranolol 10 MG Tab PO SCH (19:50)
[2019-12-18] MEDS: Temazepam 15 MG Cap PO PRN (23:06)
[2019-12-19] MEDS: Ibuprofen 200 MG Tab PO PRN ×2 (04:16→11:12)
[2019-12-19] MEDS: Enoxaparin 40 MG/0.4 ML Syringe SUBCUT SCH (07:59)
[2019-12-19] MEDS: HYDROmorphone 2 MG Tab PO PRN ×3 (08:00→23:09)
[2019-12-19] MEDS: Pregabalin 25 MG Cap PO SCH ×2 (08:00→19:45)
[2019-12-19] MEDS: Nicotine 21 MG/24 Hr Patch TRDERM SCH (08:01)
[2019-12-19] MEDS: Acetaminophen 325 MG Tab PO PRN ×3 (08:01→23:10)
[2019-12-19] MEDS: Propranolol 10 MG Tab PO SCH ×2 (08:01→19:44)
[2019-12-19] MEDS: Multivitamin Tab PO SCH (08:03)
[2019-12-19] MEDS: DULoxetine 30 MG Cap PO SCH (08:03)
[2019-12-19] MEDS: Aspirin 81 MG Tab.EC PO SCH (08:03)
[2019-12-19] MEDS: Ferrous Sulfate 324 MG Tab.EC PO SCH ×2 (08:03→19:44)
[2019-12-19] MEDS: Cyclobenzaprine 10 MG Tab PO PRN ×2 (09:16→19:44)
[2019-12-19 15:40] LABS: CHLORIDE,CL 99 mEq/L (98-106); SODIUM,NA 138 mEq/L (136-145)
[2019-12-19] MEDS: Temazepam 15 MG Cap PO PRN (23:09)
[2019-12-20] MEDS: Ibuprofen 200 MG Tab PO PRN ×3 (02:58→20:26)
[2019-12-20] MEDS: Nicotine 21 MG/24 Hr Patch TRDERM SCH (07:49)
[2019-12-20] MEDS: Propranolol 10 MG Tab PO SCH ×2 (07:50→20:26)
[2019-12-20] MEDS: DULoxetine 30 MG Cap PO SCH (07:50)
[2019-12-20] MEDS: Aspirin 81 MG Tab.EC PO SCH (07:50)
[2019-12-20] MEDS: Multivitamin Tab PO SCH (07:50)
[2019-12-20] MEDS: Ferrous Sulfate 324 MG Tab.EC PO SCH ×2 (07:50→20:26)
[2019-12-20] MEDS: Enoxaparin 40 MG/0.4 ML Syringe SUBCUT SCH (07:51)
[2019-12-20] MEDS: Pregabalin 25 MG Cap PO SCH ×2 (07:52→20:26)
[2019-12-20] MEDS: HYDROmorphone 2 MG Tab PO PRN ×2 (07:56→16:14)
[2019-12-20] MEDS: Cyclobenzaprine 10 MG Tab PO PRN ×2 (10:09→20:27)
[2019-12-20] MEDS: Acetaminophen 325 MG Tab PO PRN (16:15)
[2019-12-21] MEDS: Temazepam 15 MG Cap PO PRN ×2 (00:05→21:51)
[2019-12-21] MEDS: HYDROmorphone 2 MG Tab PO PRN ×3 (00:05→17:15)
[2019-12-21] MEDS: Acetaminophen 325 MG Tab PO PRN ×3 (00:05→17:14)
[2019-12-21] MEDS: Ibuprofen 200 MG Tab PO PRN ×3 (04:33→21:21)
[2019-12-21] MEDS: Cyclobenzaprine 10 MG Tab PO PRN ×3 (04:33→21:23)
[2019-12-21] MEDS: Propranolol 10 MG Tab PO SCH ×2 (08:05→20:05)
[2019-12-21] MEDS: Pregabalin 25 MG Cap PO SCH ×2 (08:05→20:05)
[2019-12-21] MEDS ORDERED: Sodium Chloride 0.9% 500 ML ONE (08:05)
[2019-12-21] MEDS: DULoxetine 30 MG Cap PO SCH (08:05)
[2019-12-21] MEDS: Ferrous Sulfate 324 MG Tab.EC PO SCH ×2 (08:06→20:05)
[2019-12-21] MEDS: Multivitamin Tab PO SCH (08:06)
[2019-12-21] MEDS: Aspirin 81 MG Tab.EC PO SCH (08:07)
[2019-12-21] MEDS: Enoxaparin 40 MG/0.4 ML Syringe SUBCUT SCH (08:11)
[2019-12-21] MEDS: Nicotine 21 MG/24 Hr Patch TRDERM SCH (08:12)
[2019-12-22] MEDS: HYDROmorphone 2 MG Tab PO PRN ×3 (02:29→18:12)
[2019-12-22] MEDS: Acetaminophen 325 MG Tab PO PRN ×2 (02:30→18:13)
[2019-12-22] MEDS: Ferrous Sulfate 324 MG Tab.EC PO SCH ×2 (08:04→19:56)
[2019-12-22] MEDS: Propranolol 10 MG Tab PO SCH ×2 (08:04→19:56)
[2019-12-22] MEDS: Aspirin 81 MG Tab.EC PO SCH (08:05)
[2019-12-22] MEDS: Pregabalin 25 MG Cap PO SCH ×2 (08:05→19:56)
[2019-12-22] MEDS: DULoxetine 30 MG Cap PO SCH (08:05)
[2019-12-22] MEDS: Nicotine 21 MG/24 Hr Patch TRDERM SCH (08:05)
[2019-12-22] MEDS: Multivitamin Tab PO SCH (08:06)
[2019-12-22] MEDS: Enoxaparin 40 MG/0.4 ML Syringe SUBCUT SCH (08:06)
[2019-12-22] MEDS: Cyclobenzaprine 10 MG Tab PO PRN ×2 (08:35→18:11)
[2019-12-22] MEDS: Ibuprofen 200 MG Tab PO PRN ×2 (08:39→21:35)
[2019-12-22] MEDS: Temazepam 15 MG Cap PO PRN (21:36)
[2019-12-23] MEDS: Cyclobenzaprine 10 MG Tab PO PRN ×2 (06:44→16:10)
[2019-12-23] MEDS: HYDROmorphone 2 MG Tab PO PRN ×2 (06:45→16:10)
[2019-12-23] MEDS: Acetaminophen 325 MG Tab PO PRN ×2 (06:45→16:11)
[2019-12-23] MEDS: Enoxaparin 40 MG/0.4 ML Syringe SUBCUT SCH (08:02)
[2019-12-23] MEDS: Multivitamin Tab PO SCH (08:03)
[2019-12-23] MEDS: Propranolol 10 MG Tab PO SCH ×2 (08:03→19:46)
[2019-12-23] MEDS: Pregabalin 25 MG Cap PO SCH ×2 (08:03→19:46)
[2019-12-23] MEDS: DULoxetine 30 MG Cap PO SCH (08:03)
[2019-12-23] MEDS: Ferrous Sulfate 324 MG Tab.EC PO SCH ×2 (08:04→19:46)
[2019-12-23] MEDS: Nicotine 21 MG/24 Hr Patch TRDERM SCH (08:04)
[2019-12-23] MEDS: Aspirin 81 MG Tab.EC PO SCH (08:04)
[2019-12-23] MEDS: Ibuprofen 200 MG Tab PO PRN (20:54)
[2019-12-23] MEDS: Temazepam 15 MG Cap PO PRN (22:11)
[2019-12-24] MEDS: Acetaminophen 325 MG Tab PO PRN ×3 (00:13→18:06)
[2019-12-24] MEDS: HYDROmorphone 2 MG Tab PO PRN ×3 (00:13→18:03)
[2019-12-24] MEDS: Ibuprofen 200 MG Tab PO PRN ×3 (06:09→22:27)
[2019-12-24] MEDS: Enoxaparin 40 MG/0.4 ML Syringe SUBCUT SCH (08:03)
[2019-12-24] MEDS: DULoxetine 30 MG Cap PO SCH (08:04)
[2019-12-24] MEDS: Pregabalin 25 MG Cap PO SCH ×2 (08:04→19:33)
[2019-12-24] MEDS: Ferrous Sulfate 324 MG Tab.EC PO SCH ×2 (08:05→19:33)
[2019-12-24] MEDS: Aspirin 81 MG Tab.EC PO SCH (08:05)
[2019-12-24] MEDS: Multivitamin Tab PO SCH (08:05)
[2019-12-24] MEDS: Propranolol 10 MG Tab PO SCH ×2 (08:05→19:34)
[2019-12-24] MEDS: Cyclobenzaprine 10 MG Tab PO PRN ×2 (08:07→18:03)
[2019-12-24] MEDS: Nicotine 21 MG/24 Hr Patch TRDERM SCH (08:09)
--- NOTE | 2019-12-24 10:18 | PCM.PN ---
- General Info Date of Service: 12/24/19 Admission Dx/Problem (Free Text): Swing Bed Admission Right Proximal Femur Osteomyelitis S/P ORIF right hip S/P I & D with removal of hardware S/P alcohol withdrawals Functional Status: Reports: Tolerating Diet - Review of Systems General: Denies: Fever, Weakness Musculoskeletal: Reports: Other (wound from the right hip is draining more and changing dressing twice a day.) - Patient Data Vitals - Most Recent: Last Vital Signs Temp 97.5 F 12/24/19 08:00 Pulse 93 12/24/19 08:05 Resp 18 12/24/19 08:00 BP 133/84 12/24/19 08:05 Pulse Ox 100 12/24/19 08:00 Weight - Most Recent: 180 lb 3.2 oz Med Orders - Current: Current Medications Acetaminophen (Tylenol) 650 mg PO Q8H PRN PRN Reason: Pain Last Admin: 12/24/19 08:06 Dose: 650 mg Aspirin (Halfprin) 81 mg PO DAILY [facility] Last Admin: 12/24/19 08:05 Dose: 81 mg Cyclobenzaprine HCl (Flexeril) 5 mg PO TID PRN PRN Reason: Pain Last Admin: 12/24/19 08:07 Dose: 5 mg Docusate Sodium (Colace) 100 mg PO BID PRN PRN Reason: Constipation Duloxetine HCl (Cymbalta) 30 mg PO DAILY [facility] Last Admin: 12/24/19 08:04 Dose: 30 mg Enoxaparin Sodium (Lovenox) 40 mg SUBCUT DAILY [facility] Last Admin: 12/24/19 08:03 Dose: 40 mg Ferrous Sulfate (Ferrous Sulfate) 324 mg PO BID [facility] Last Admin: 12/24/19 08:05 Dose: 324 mg Heparin Sodium (Porcine) (Heparin Lock Flush 100 Units/Ml) 300 units FLUSH TID@ 0000,0800,1600 [facility] Last Admin: 12/24/19 08:03 Dose: 300 units Hydromorphone HCl (Dilaudid) 1 - 2 mg PO Q6H PRN PRN Reason: Pain Last Admin: 12/24/19 08:06 Dose: 2 mg Vancomycin HCl 1 gm/Vancomycin HCl 500 mg/ Sodium Chloride 500 mls @ 334.014 mls/hr IV Q8H [facility] Last Admin: 03/26/20 08:02 Dose: 334.014 mls/hr Ibuprofen (Motrin) 600 mg PO Q6H PRN PRN Reason: Pain Last Admin: 12/24/19 06:09 Dose: 600 mg Magnesium Hydroxide (Milk Of Magnesia) 30 ml PO BID PRN PRN Reason: Constipation Multivitamins/Minerals/Vitamin C (Tab-A-Deyanira) 1 tab PO DAILY [facility] Last Admin: 12/24/19 08:05 Dose: 1 tab Nicotine (Habitrol) 21 mg TRDERM DAILY [facility] Last Admin: 12/24/19 08:09 Dose: 21 mg Ondansetron HCl (Zofran Odt) 4 mg PO Q8H PRN PRN Reason: Nausea/Vomiting Polyethylene Glycol (Miralax) 17 gm PO DAILY PRN PRN Reason: Constipation Pregabalin (Lyrica) 75 mg PO BID [facility] Last Admin: 12/24/19 08:04 Dose: 75 mg Propranolol HCl (Inderal) 10 mg PO BID [facility] Last Admin: 12/24/19 08:05 Dose: 10 mg Temazepam (Restoril) 15 mg PO BEDTIME PRN PRN Reason: Insomnia Last Admin: 12/23/19 22:11 Dose: 15 mg Vancomycin HCl (Pharmacy To Dose - Vancomycin) 1 dose .XX ASDIRECTED [facility] Discontinued Medications Acetaminophen (Tylenol) 650 mg PO Q8H [facility] Cyclobenzaprine HCl (Flexeril) 10 mg PO TID PRN PRN Reason: Pain Last Admin: 12/21/19 04:33 Dose: 10 mg Docusate Sodium (Colace) 100 mg PO DAILY PRN PRN Reason: Constipation Enoxaparin Sodium (Lovenox) 40 mg SUBCUT Q24H [facility] Last Admin: 12/18/19 14:35 Dose: Not Given Heparin Sodium (Porcine) (Heparin Lock Flush 100 Units/Ml) 300 units FLUSH DAILY [facility] Hydromorphone HCl (Dilaudid) 2 - 4 mg PO Q6H PRN PRN Reason: Pain Last Admin: 12/21/19 08:23 Dose: 4 mg Vancomycin HCl 1 gm/ Sodium (Chloride) 250 mls @ 167 mls/hr IV Q8H [facility] Vancomycin HCl 1 gm/ Sodium (Chloride) 250 mls @ 167 mls/hr IV Q8H [facility] Last Admin: 12/19/19 16:22 Dose: Not Given Vancomycin HCl 1 gm/Vancomycin HCl 250 mg/ Sodium Chloride 500 mls @ 334.014 mls/hr IV Q8H [facility] Last Admin: 12/20/19 07:48 Dose: 334.014 mls/hr Sodium Chloride (Normal Saline) Confirm Administered Dose 500 mls @ as directed .ROUTE .STK-MED ONE Stop: 12/21/19 08:06 Last Admin: 12/21/19 08:10 Dose: Not Given Temazepam (Restoril) 15 mg PO BEDTIME PRN PRN Reason: Sleep - Exam Quality Assessment: No: Supplemental Oxygen General: Alert, Oriented Back Exam: Normal Inspection Extremities: Other (large amount of brownish discharge noted from the proximal and distal area of the right hip incision. Area around the incision is not red or warm. Nursing is changing the mepeilex at least twice a day.) Skin: Warm, Dry Wound/Incisions: Drainage (brownish drainage from the proximal incision.) Neurological: No New Focal Deficit Psy/Mental Status: Alert, Normal Affect Sepsis Event Note - Evaluation Sepsis Screening Result: No Definite Risk - Focused Exam Vital Signs: Vital Signs Temp Pulse Pulse Resp BP BP Pulse Ox 12/24/19 08:05 93 133/84 12/24/19 08:00 97.5 F 93 18 133/84 100 Date Exam was Performed: 12/24/19 Time Exam was Performed: 10:09 - Problem List & Annotations (1) Osteomyelitis of right hip SNOMED Code(s): 5400529 Code(s): M86.9 - OSTEOMYELITIS, UNSPECIFIED Status: Acute Current Visit: Yes - Problem List Review Problem List Initiated/Reviewed/Updated: Yes - My Orders Last 24 Hours: My Active Orders 12/24/19 10:06 Dressing Change [Wound Care] [RC] Q12H - Plan Plan:: Assessment Swingbed Admission Right Proximal Femur Osteomyelitis S/P ORIF right hip S/P I & D with removal of hardware right hip Hx Alcohol Withdrawals Plan Patient will be admitted to swing bed for ongoing PT and IV antibiotics. PICC line in place and orders for vancomycin. He is to be toe touch weight bearing to [facility]. See admit orders. I contacted LISA Forde at Dr. Ortiz's office to relay to him that the wound is draining this much. He suggested to use gauze and ABD's and stop the mepeilex. He will talk to Dr. Ortiz tomorrow as he is out of the office today. Pt may need to return for further washing and debridement. Pat will call here to nursing station tomorrow with further orders.
[2019-12-24] MEDS ORDERED: Levofloxacin 500 MG Tab PO SCH (12:00)
[2019-12-24] MEDS: Temazepam 15 MG Cap PO PRN (22:27)
[2019-12-25] MEDS: Cyclobenzaprine 10 MG Tab PO PRN ×3 (01:59→18:05)
[2019-12-25] MEDS: HYDROmorphone 2 MG Tab PO PRN ×3 (02:00→18:05)
[2019-12-25] MEDS: Acetaminophen 325 MG Tab PO PRN ×3 (02:00→18:05)
[2019-12-25] MEDS: Ibuprofen 200 MG Tab PO PRN ×3 (06:08→22:31)
[2019-12-25] MEDS: Pregabalin 25 MG Cap PO SCH ×2 (07:45→19:43)
[2019-12-25] MEDS: DULoxetine 30 MG Cap PO SCH (07:45)
[2019-12-25] MEDS: Aspirin 81 MG Tab.EC PO SCH (07:46)
[2019-12-25] MEDS: Enoxaparin 40 MG/0.4 ML Syringe SUBCUT SCH (07:46)
[2019-12-25] MEDS: Propranolol 10 MG Tab PO SCH ×2 (07:46→19:43)
[2019-12-25] MEDS: Ferrous Sulfate 324 MG Tab.EC PO SCH ×2 (07:46→19:42)
[2019-12-25] MEDS: Nicotine 21 MG/24 Hr Patch TRDERM SCH (07:46)
[2019-12-25] MEDS: Multivitamin Tab PO SCH (07:46)
[2019-12-25] MEDS: Levofloxacin 500 MG Tab PO SCH (15:15)
[2019-12-25] MEDS: Temazepam 15 MG Cap PO PRN (22:32)
[2019-12-26] MEDS: HYDROmorphone 2 MG Tab PO PRN ×3 (00:14→20:39)
[2019-12-26] MEDS: Acetaminophen 325 MG Tab PO PRN ×2 (02:21→10:05)
[2019-12-26] MEDS: DULoxetine 30 MG Cap PO SCH (08:23)
[2019-12-26] MEDS: Propranolol 10 MG Tab PO SCH ×2 (08:23→19:39)
[2019-12-26] MEDS: Cyclobenzaprine 10 MG Tab PO PRN (08:24)
[2019-12-26] MEDS: Multivitamin Tab PO SCH (08:24)
[2019-12-26] MEDS: Aspirin 81 MG Tab.EC PO SCH (08:24)
[2019-12-26] MEDS: Ferrous Sulfate 324 MG Tab.EC PO SCH ×2 (08:24→19:39)
[2019-12-26] MEDS: Enoxaparin 40 MG/0.4 ML Syringe SUBCUT SCH (08:25)
[2019-12-26] MEDS: Pregabalin 25 MG Cap PO SCH ×2 (08:25→19:41)
[2019-12-26] MEDS: Nicotine 21 MG/24 Hr Patch TRDERM SCH ×2 (08:26→16:51)
[2019-12-26] MEDS: Ibuprofen 200 MG Tab PO PRN ×3 (08:33→20:40)
[2019-12-26] MEDS: Levofloxacin 500 MG Tab PO SCH (16:46)
[2019-12-26] MEDS: Temazepam 15 MG Cap PO PRN (20:40)
[2019-12-27] MEDS: Acetaminophen 325 MG Tab PO PRN ×3 (04:00→22:04)
[2019-12-27] MEDS: Nicotine 21 MG/24 Hr Patch TRDERM SCH (07:51)
[2019-12-27] MEDS: Enoxaparin 40 MG/0.4 ML Syringe SUBCUT SCH (07:52)
[2019-12-27] MEDS: Aspirin 81 MG Tab.EC PO SCH (07:52)
[2019-12-27] MEDS: DULoxetine 30 MG Cap PO SCH (07:52)
[2019-12-27] MEDS: Ibuprofen 200 MG Tab PO PRN ×2 (07:52→17:46)
[2019-12-27] MEDS: HYDROmorphone 2 MG Tab PO PRN ×3 (07:54→22:04)
[2019-12-27] MEDS: Ferrous Sulfate 324 MG Tab.EC PO SCH ×2 (07:54→19:44)
[2019-12-27] MEDS: Multivitamin Tab PO SCH (07:55)
[2019-12-27] MEDS: Propranolol 10 MG Tab PO SCH ×2 (07:55→19:45)
[2019-12-27] MEDS: Pregabalin 25 MG Cap PO SCH ×2 (07:55→19:44)
[2019-12-27] MEDS: Cyclobenzaprine 10 MG Tab PO PRN ×2 (08:08→14:07)
[2019-12-27] MEDS: Levofloxacin 500 MG Tab PO SCH (16:09)
[2019-12-27] MEDS: Temazepam 15 MG Cap PO PRN (20:44)
[2019-12-28] MEDS: Ibuprofen 200 MG Tab PO PRN ×3 (00:06→20:02)
[2019-12-28] MEDS: Acetaminophen 325 MG Tab PO PRN ×2 (06:45→15:08)
[2019-12-28] MEDS: HYDROmorphone 2 MG Tab PO PRN ×3 (06:47→21:59)
[2019-12-28] MEDS: Cyclobenzaprine 10 MG Tab PO PRN ×2 (08:04→20:00)
[2019-12-28] MEDS: Propranolol 10 MG Tab PO SCH ×2 (08:04→19:54)
[2019-12-28] MEDS: Pregabalin 25 MG Cap PO SCH ×2 (08:04→19:56)
[2019-12-28] MEDS: Multivitamin Tab PO SCH (08:05)
[2019-12-28] MEDS: Aspirin 81 MG Tab.EC PO SCH (08:05)
[2019-12-28] MEDS: Ferrous Sulfate 324 MG Tab.EC PO SCH ×2 (08:05→19:54)
[2019-12-28] MEDS: Nicotine 21 MG/24 Hr Patch TRDERM SCH (08:05)
[2019-12-28] MEDS: DULoxetine 30 MG Cap PO SCH (08:06)
[2019-12-28] MEDS: Enoxaparin 40 MG/0.4 ML Syringe SUBCUT SCH (08:06)
[2019-12-28] MEDS: Levofloxacin 500 MG Tab PO SCH (16:26)
[2019-12-28] MEDS: Temazepam 15 MG Cap PO PRN (22:00)
[2019-12-29] MEDS: Acetaminophen 325 MG Tab PO PRN ×3 (00:05→17:05)
[2019-12-29] MEDS: Ibuprofen 200 MG Tab PO PRN ×3 (03:05→20:04)
[2019-12-29] MEDS: Nicotine 21 MG/24 Hr Patch TRDERM SCH (07:31)
[2019-12-29] MEDS: Multivitamin Tab PO SCH (07:31)
[2019-12-29] MEDS: DULoxetine 30 MG Cap PO SCH (07:31)
[2019-12-29] MEDS: Aspirin 81 MG Tab.EC PO SCH (07:31)
[2019-12-29] MEDS: HYDROmorphone 2 MG Tab PO PRN ×3 (07:31→20:03)
[2019-12-29] MEDS: Ferrous Sulfate 324 MG Tab.EC PO SCH ×2 (07:31→19:32)
[2019-12-29] MEDS: Enoxaparin 40 MG/0.4 ML Syringe SUBCUT SCH (07:32)
[2019-12-29] MEDS: Pregabalin 25 MG Cap PO SCH ×2 (07:32→19:31)
[2019-12-29] MEDS: Propranolol 10 MG Tab PO SCH ×2 (07:32→19:31)
[2019-12-29] MEDS: Levofloxacin 500 MG Tab PO SCH (16:28)
[2019-12-29] MEDS: Cyclobenzaprine 10 MG Tab PO PRN (17:04)
[2019-12-29] MEDS: Temazepam 15 MG Cap PO PRN (22:27)
[2019-12-30] MEDS: Acetaminophen 325 MG Tab PO PRN ×3 (01:06→20:16)
[2019-12-30] MEDS: HYDROmorphone 2 MG Tab PO PRN ×4 (02:38→22:57)
[2019-12-30] MEDS: Ibuprofen 200 MG Tab PO PRN ×4 (02:39→22:58)
[2019-12-30] MEDS: Nicotine 21 MG/24 Hr Patch TRDERM SCH (07:57)
[2019-12-30] MEDS: Pregabalin 25 MG Cap PO SCH ×2 (07:58→19:59)
[2019-12-30] MEDS: Multivitamin Tab PO SCH (07:58)
[2019-12-30] MEDS: DULoxetine 30 MG Cap PO SCH (07:58)
[2019-12-30] MEDS: Ferrous Sulfate 324 MG Tab.EC PO SCH ×2 (07:58→19:58)
[2019-12-30] MEDS: Propranolol 10 MG Tab PO SCH ×2 (07:58→19:58)
[2019-12-30] MEDS: Aspirin 81 MG Tab.EC PO SCH (07:58)
[2019-12-30] MEDS: Enoxaparin 40 MG/0.4 ML Syringe SUBCUT SCH (08:00)
[2019-12-30] MEDS: Cyclobenzaprine 10 MG Tab PO PRN ×3 (08:48→22:57)
[2019-12-30] MEDS: Levofloxacin 500 MG Tab PO SCH (16:45)
[2019-12-30] MEDS: Temazepam 15 MG Cap PO PRN (22:57)
[2019-12-31] MEDS: Acetaminophen 325 MG Tab PO PRN ×2 (04:14→19:49)
[2019-12-31] MEDS: Nicotine 21 MG/24 Hr Patch TRDERM SCH (07:50)
[2019-12-31] MEDS: Enoxaparin 40 MG/0.4 ML Syringe SUBCUT SCH (07:50)
[2019-12-31] MEDS: Pregabalin 25 MG Cap PO SCH ×2 (07:51→19:46)
[2019-12-31] MEDS: Aspirin 81 MG Tab.EC PO SCH (07:52)
[2019-12-31] MEDS: Multivitamin Tab PO SCH (07:52)
[2019-12-31] MEDS: Ferrous Sulfate 324 MG Tab.EC PO SCH ×2 (07:52→19:45)
[2019-12-31] MEDS: DULoxetine 30 MG Cap PO SCH (07:53)
[2019-12-31] MEDS: Propranolol 10 MG Tab PO SCH ×2 (07:53→19:46)
[2019-12-31] MEDS: Cyclobenzaprine 10 MG Tab PO PRN ×3 (07:53→22:10)
[2019-12-31] MEDS: HYDROmorphone 2 MG Tab PO PRN ×3 (07:54→22:09)
[2019-12-31] MEDS: Ibuprofen 200 MG Tab PO PRN ×3 (07:55→22:09)
[2019-12-31] MEDS: Levofloxacin 500 MG Tab PO SCH (15:59)
[2019-12-31] MEDS: Temazepam 15 MG Cap PO PRN (22:10)
[2020-01-01] MEDS: Pregabalin 25 MG Cap PO SCH ×2 (07:53→20:02)
[2020-01-01] MEDS: Enoxaparin 40 MG/0.4 ML Syringe SUBCUT SCH (07:53)
[2020-01-01] MEDS: Multivitamin Tab PO SCH (07:54)
[2020-01-01] MEDS: Propranolol 10 MG Tab PO SCH ×2 (07:54→20:03)
[2020-01-01] MEDS: Ferrous Sulfate 324 MG Tab.EC PO SCH ×2 (07:54→20:03)
[2020-01-01] MEDS: DULoxetine 30 MG Cap PO SCH (07:55)
[2020-01-01] MEDS: Aspirin 81 MG Tab.EC PO SCH (07:55)
[2020-01-01] MEDS: Nicotine 21 MG/24 Hr Patch TRDERM SCH (07:55)
[2020-01-01] MEDS: Acetaminophen 325 MG Tab PO PRN ×2 (09:22→21:40)
[2020-01-01] MEDS: Cyclobenzaprine 10 MG Tab PO PRN ×2 (12:37→18:57)
[2020-01-01] MEDS: Ibuprofen 200 MG Tab PO PRN ×2 (12:38→18:55)
[2020-01-01] MEDS: HYDROmorphone 2 MG Tab PO PRN ×2 (12:39→18:55)
--- NOTE | 2020-01-01 14:42 | PN ---
DATE: 01/01/2020 S: Eamon was seen today for a wound check. He remains on IV vancomycin. He has not had any fevers. His vital signs have been fine. He feels like there is a little bit of color change in the superior aspect of his incision. I took a look at it, there is a little bubble of fluid which has been present before. There maybe a little tiny bluish hinge, I am not sure what it looked like in the past. This seems one specific spot, but I do not see any signs of worsening infection. There is no new or changing drainage and no surrounding erythema. ASSESSMENT: ENTEROCOCCUS WOUND INFECTION. P: We will continue all cares. I will get a CBC, CRP today. MARIO/KANWAL /[id number]
[2020-01-01] MEDS: Levofloxacin 500 MG Tab PO SCH (16:03)
[2020-01-01] MEDS: Temazepam 15 MG Cap PO PRN (23:09)
[2020-01-02] MEDS: HYDROmorphone 2 MG Tab PO PRN ×4 (00:56→20:59)
[2020-01-02] MEDS: Ibuprofen 200 MG Tab PO PRN ×4 (00:57→20:56)
[2020-01-02] MEDS: Acetaminophen 325 MG Tab PO PRN ×2 (05:54→16:48)
[2020-01-02] MEDS: Cyclobenzaprine 10 MG Tab PO PRN ×2 (07:41→16:48)
[2020-01-02] MEDS: Aspirin 81 MG Tab.EC PO SCH (07:42)
[2020-01-02] MEDS: DULoxetine 30 MG Cap PO SCH (07:43)
[2020-01-02] MEDS: Pregabalin 25 MG Cap PO SCH ×2 (07:43→20:15)
[2020-01-02] MEDS: Enoxaparin 40 MG/0.4 ML Syringe SUBCUT SCH (07:43)
[2020-01-02] MEDS: Propranolol 10 MG Tab PO SCH ×2 (07:43→20:15)
[2020-01-02] MEDS: Ferrous Sulfate 324 MG Tab.EC PO SCH ×2 (07:43→20:15)
[2020-01-02] MEDS: Multivitamin Tab PO SCH (07:43)
[2020-01-02] MEDS: Nicotine 21 MG/24 Hr Patch TRDERM SCH (07:44)
[2020-01-02] MEDS: Levofloxacin 500 MG Tab PO SCH (16:20)
[2020-01-02] MEDS: Temazepam 15 MG Cap PO PRN (20:55)
[2020-01-03] MEDS: Cyclobenzaprine 10 MG Tab PO PRN ×3 (01:21→20:02)
[2020-01-03] MEDS: Acetaminophen 325 MG Tab PO PRN ×3 (01:21→20:02)
[2020-01-03] MEDS: Ibuprofen 200 MG Tab PO PRN ×4 (03:00→22:28)
[2020-01-03] MEDS: HYDROmorphone 2 MG Tab PO PRN ×4 (03:01→22:29)
[2020-01-03] MEDS: Nicotine 21 MG/24 Hr Patch TRDERM SCH (08:29)
[2020-01-03] MEDS: Multivitamin Tab PO SCH (08:30)
[2020-01-03] MEDS: Aspirin 81 MG Tab.EC PO SCH (08:31)
[2020-01-03] MEDS: Propranolol 10 MG Tab PO SCH ×2 (08:31→19:55)
[2020-01-03] MEDS: DULoxetine 30 MG Cap PO SCH (08:31)
[2020-01-03] MEDS: Ferrous Sulfate 324 MG Tab.EC PO SCH ×2 (08:36→19:55)
[2020-01-03] MEDS: Pregabalin 25 MG Cap PO SCH ×2 (08:36→19:55)
[2020-01-03] MEDS: Enoxaparin 40 MG/0.4 ML Syringe SUBCUT SCH (08:37)
[2020-01-03] MEDS: Levofloxacin 500 MG Tab PO SCH (16:10)
[2020-01-03] MEDS: Temazepam 15 MG Cap PO PRN (22:28)
[2020-01-04] MEDS: HYDROmorphone 2 MG Tab PO PRN ×3 (04:40→18:41)
[2020-01-04] MEDS: Ibuprofen 200 MG Tab PO PRN ×3 (04:41→18:40)
[2020-01-04] MEDS: Cyclobenzaprine 10 MG Tab PO PRN ×3 (06:40→22:31)
[2020-01-04] MEDS: Acetaminophen 325 MG Tab PO PRN ×2 (06:41→15:22)
[2020-01-04] MEDS: Enoxaparin 40 MG/0.4 ML Syringe SUBCUT SCH (07:40)
[2020-01-04] MEDS: Pregabalin 25 MG Cap PO SCH ×2 (07:40→19:47)
[2020-01-04] MEDS: Aspirin 81 MG Tab.EC PO SCH (07:41)
[2020-01-04] MEDS: Ferrous Sulfate 324 MG Tab.EC PO SCH ×2 (07:41→19:47)
[2020-01-04] MEDS: DULoxetine 30 MG Cap PO SCH (07:41)
[2020-01-04] MEDS: Multivitamin Tab PO SCH (07:41)
[2020-01-04] MEDS: Propranolol 10 MG Tab PO SCH ×2 (07:41→19:47)
[2020-01-04] MEDS: Nicotine 21 MG/24 Hr Patch TRDERM SCH (07:43)
[2020-01-04] MEDS: Levofloxacin 500 MG Tab PO SCH (15:22)
[2020-01-04] MEDS: Temazepam 15 MG Cap PO PRN (22:31)
[2020-01-05] MEDS: HYDROmorphone 2 MG Tab PO PRN ×4 (01:30→22:00)
[2020-01-05] MEDS: Ibuprofen 200 MG Tab PO PRN ×4 (01:31→22:09)
[2020-01-05] MEDS: Acetaminophen 325 MG Tab PO PRN ×2 (04:20→12:49)
[2020-01-05] MEDS: Enoxaparin 40 MG/0.4 ML Syringe SUBCUT SCH (07:37)
[2020-01-05] MEDS: Nicotine 21 MG/24 Hr Patch TRDERM SCH (07:38)
[2020-01-05] MEDS: Multivitamin Tab PO SCH (07:38)
[2020-01-05] MEDS: Ferrous Sulfate 324 MG Tab.EC PO SCH ×2 (07:38→19:58)
[2020-01-05] MEDS: Aspirin 81 MG Tab.EC PO SCH (07:38)
[2020-01-05] MEDS: Pregabalin 25 MG Cap PO SCH ×2 (07:39→19:00)
[2020-01-05] MEDS: DULoxetine 30 MG Cap PO SCH (07:39)
[2020-01-05] MEDS: Propranolol 10 MG Tab PO SCH ×2 (07:53→19:58)
[2020-01-05] MEDS: Cyclobenzaprine 10 MG Tab PO PRN ×3 (07:54→23:55)
[2020-01-05] MEDS: Levofloxacin 500 MG Tab PO SCH (15:21)
[2020-01-05] MEDS: Temazepam 15 MG Cap PO PRN (22:06)
[2020-01-06] MEDS: Acetaminophen 325 MG Tab PO PRN ×2 (04:10→13:17)
[2020-01-06] MEDS: Aspirin 81 MG Tab.EC PO SCH (07:42)
[2020-01-06] MEDS: Multivitamin Tab PO SCH (07:42)
[2020-01-06] MEDS: Ferrous Sulfate 324 MG Tab.EC PO SCH ×2 (07:42→19:28)
[2020-01-06] MEDS: Enoxaparin 40 MG/0.4 ML Syringe SUBCUT SCH (07:42)
[2020-01-06] MEDS: Nicotine 21 MG/24 Hr Patch TRDERM SCH (07:42)
[2020-01-06] MEDS: DULoxetine 30 MG Cap PO SCH (07:43)
[2020-01-06] MEDS: Pregabalin 25 MG Cap PO SCH ×2 (07:43→19:28)
[2020-01-06] MEDS: Propranolol 10 MG Tab PO SCH ×2 (07:44→19:29)
[2020-01-06] MEDS: Cyclobenzaprine 10 MG Tab PO PRN ×2 (07:54→16:08)
[2020-01-06] MEDS: HYDROmorphone 2 MG Tab PO PRN ×3 (07:54→22:13)
[2020-01-06] MEDS: Ibuprofen 200 MG Tab PO PRN ×3 (07:54→22:15)
[2020-01-06] MEDS: Levofloxacin 500 MG Tab PO SCH (16:01)
[2020-01-06] MEDS: Temazepam 15 MG Cap PO PRN (22:15)
[2020-01-07] MEDS: Cyclobenzaprine 10 MG Tab PO PRN ×3 (01:55→22:30)
[2020-01-07] MEDS: Acetaminophen 325 MG Tab PO PRN ×2 (01:55→12:34)
[2020-01-07] MEDS: Nicotine 21 MG/24 Hr Patch TRDERM SCH (07:32)
[2020-01-07] MEDS: Enoxaparin 40 MG/0.4 ML Syringe SUBCUT SCH (07:32)
[2020-01-07] MEDS: Aspirin 81 MG Tab.EC PO SCH (07:33)
[2020-01-07] MEDS: Pregabalin 25 MG Cap PO SCH ×2 (07:34→19:31)
[2020-01-07] MEDS: DULoxetine 30 MG Cap PO SCH (07:34)
[2020-01-07] MEDS: Ferrous Sulfate 324 MG Tab.EC PO SCH ×2 (07:35→19:31)
[2020-01-07] MEDS: Multivitamin Tab PO SCH (07:35)
[2020-01-07] MEDS: HYDROmorphone 2 MG Tab PO PRN ×3 (07:35→20:17)
[2020-01-07] MEDS: Ibuprofen 200 MG Tab PO PRN ×3 (07:36→20:17)
[2020-01-07] MEDS: Propranolol 10 MG Tab PO SCH ×2 (07:37→19:31)
[2020-01-07] MEDS: Levofloxacin 500 MG Tab PO SCH (15:56)
[2020-01-07] MEDS: Temazepam 15 MG Cap PO PRN (22:30)
[2020-01-08] MEDS: Acetaminophen 325 MG Tab PO PRN ×2 (03:12→16:02)
[2020-01-08] MEDS: HYDROmorphone 2 MG Tab PO PRN ×3 (05:51→19:46)
[2020-01-08] MEDS: Ibuprofen 200 MG Tab PO PRN ×3 (05:52→19:47)
[2020-01-08] MEDS: Enoxaparin 40 MG/0.4 ML Syringe SUBCUT SCH (07:30)
[2020-01-08] MEDS: Ferrous Sulfate 324 MG Tab.EC PO SCH ×2 (07:30→19:36)
[2020-01-08] MEDS: Nicotine 21 MG/24 Hr Patch TRDERM SCH (07:31)
[2020-01-08] MEDS: Aspirin 81 MG Tab.EC PO SCH (07:32)
[2020-01-08] MEDS: DULoxetine 30 MG Cap PO SCH (07:33)
[2020-01-08] MEDS: Multivitamin Tab PO SCH (07:33)
[2020-01-08] MEDS: Pregabalin 25 MG Cap PO SCH ×2 (07:33→19:39)
[2020-01-08] MEDS: Propranolol 10 MG Tab PO SCH ×2 (07:33→19:37)
[2020-01-08] MEDS: Cyclobenzaprine 10 MG Tab PO PRN ×2 (13:19→19:47)
[2020-01-08] MEDS: Levofloxacin 500 MG Tab PO SCH (16:02)
[2020-01-08] MEDS: Temazepam 15 MG Cap PO PRN (21:24)
[2020-01-09] MEDS: Acetaminophen 325 MG Tab PO PRN ×2 (00:21→11:17)
[2020-01-09] MEDS: Ibuprofen 200 MG Tab PO PRN ×4 (01:46→21:56)
[2020-01-09] MEDS: HYDROmorphone 2 MG Tab PO PRN ×4 (01:47→21:57)
[2020-01-09] MEDS: Pregabalin 25 MG Cap PO SCH ×2 (07:24→19:15)
[2020-01-09] MEDS: Ferrous Sulfate 324 MG Tab.EC PO SCH ×2 (07:24→19:15)
[2020-01-09] MEDS: Multivitamin Tab PO SCH (07:24)
[2020-01-09] MEDS: Enoxaparin 40 MG/0.4 ML Syringe SUBCUT SCH (07:24)
[2020-01-09] MEDS: DULoxetine 30 MG Cap PO SCH (07:24)
[2020-01-09] MEDS: Aspirin 81 MG Tab.EC PO SCH (07:24)
[2020-01-09] MEDS: Nicotine 21 MG/24 Hr Patch TRDERM SCH (07:25)
[2020-01-09] MEDS: Propranolol 10 MG Tab PO SCH ×2 (07:27→19:15)
[2020-01-09] MEDS: Cyclobenzaprine 10 MG Tab PO PRN ×2 (08:04→15:38)
[2020-01-09] MEDS: Levofloxacin 500 MG Tab PO SCH (15:37)
[2020-01-09] MEDS: Temazepam 15 MG Cap PO PRN (21:58)
[2020-01-10] MEDS: Acetaminophen 325 MG Tab PO PRN ×3 (04:08→23:28)
[2020-01-10] MEDS: Cyclobenzaprine 10 MG Tab PO PRN ×3 (04:09→23:28)
[2020-01-10] MEDS: Ibuprofen 200 MG Tab PO PRN ×3 (07:43→20:49)
[2020-01-10] MEDS: Nicotine 21 MG/24 Hr Patch TRDERM SCH (07:43)
[2020-01-10] MEDS: Aspirin 81 MG Tab.EC PO SCH (07:44)
[2020-01-10] MEDS: HYDROmorphone 2 MG Tab PO PRN ×3 (07:44→20:49)
[2020-01-10] MEDS: Enoxaparin 40 MG/0.4 ML Syringe SUBCUT SCH (07:44)
[2020-01-10] MEDS: Pregabalin 25 MG Cap PO SCH ×2 (07:44→19:30)
[2020-01-10] MEDS: DULoxetine 30 MG Cap PO SCH (07:45)
[2020-01-10] MEDS: Propranolol 10 MG Tab PO SCH ×2 (07:45→19:30)
[2020-01-10] MEDS: Multivitamin Tab PO SCH (07:45)
[2020-01-10] MEDS: Ferrous Sulfate 324 MG Tab.EC PO SCH ×2 (07:45→19:30)
[2020-01-10] MEDS: Levofloxacin 500 MG Tab PO SCH (16:06)
[2020-01-10] MEDS: Temazepam 15 MG Cap PO PRN (20:49)
[2020-01-11] MEDS: DULoxetine 30 MG Cap PO SCH (07:48)
[2020-01-11] MEDS: Multivitamin Tab PO SCH (07:49)
[2020-01-11] MEDS: Aspirin 81 MG Tab.EC PO SCH (07:49)
[2020-01-11] MEDS: Cyclobenzaprine 10 MG Tab PO PRN ×2 (07:50→19:36)
[2020-01-11] MEDS: Pregabalin 25 MG Cap PO SCH ×2 (07:50→19:35)
[2020-01-11] MEDS: HYDROmorphone 2 MG Tab PO PRN ×3 (07:50→22:04)
[2020-01-11] MEDS: Propranolol 10 MG Tab PO SCH ×2 (07:50→19:36)
[2020-01-11] MEDS: Ferrous Sulfate 324 MG Tab.EC PO SCH ×2 (07:50→19:36)
[2020-01-11] MEDS: Nicotine 21 MG/24 Hr Patch TRDERM SCH (07:51)
[2020-01-11] MEDS: Enoxaparin 40 MG/0.4 ML Syringe SUBCUT SCH (07:54)
[2020-01-11] MEDS: Acetaminophen 325 MG Tab PO PRN ×2 (11:46→19:36)
[2020-01-11] MEDS: Levofloxacin 500 MG Tab PO SCH (16:05)
[2020-01-11] MEDS: Ibuprofen 200 MG Tab PO PRN ×2 (16:08→22:04)
[2020-01-11] MEDS: Temazepam 15 MG Cap PO PRN (22:04)
[2020-01-12] MEDS: Cyclobenzaprine 10 MG Tab PO PRN ×2 (04:35→20:45)
[2020-01-12] MEDS: Acetaminophen 325 MG Tab PO PRN (04:35)
[2020-01-12] MEDS: DULoxetine 30 MG Cap PO SCH (08:01)
[2020-01-12] MEDS: Propranolol 10 MG Tab PO SCH ×2 (08:01→19:59)
[2020-01-12] MEDS: Pregabalin 25 MG Cap PO SCH ×2 (08:01→19:58)
[2020-01-12] MEDS: Multivitamin Tab PO SCH (08:01)
[2020-01-12] MEDS: Ferrous Sulfate 324 MG Tab.EC PO SCH ×2 (08:01→19:59)
[2020-01-12] MEDS: Enoxaparin 40 MG/0.4 ML Syringe SUBCUT SCH (08:02)
[2020-01-12] MEDS: Aspirin 81 MG Tab.EC PO SCH (08:02)
[2020-01-12] MEDS: Nicotine 21 MG/24 Hr Patch TRDERM SCH (08:02)
[2020-01-12] MEDS: HYDROmorphone 2 MG Tab PO PRN ×3 (08:08→20:43)
[2020-01-12] MEDS: Ibuprofen 200 MG Tab PO PRN ×3 (08:09→20:44)
[2020-01-12] MEDS: Levofloxacin 500 MG Tab PO SCH (16:31)
[2020-01-12] MEDS: Temazepam 15 MG Cap PO PRN (22:18)
[2020-01-13] MEDS: Acetaminophen 325 MG Tab PO PRN ×2 (02:08→12:23)
[2020-01-13] MEDS: Nicotine 21 MG/24 Hr Patch TRDERM SCH (07:45)
[2020-01-13] MEDS: Enoxaparin 40 MG/0.4 ML Syringe SUBCUT SCH (07:45)
[2020-01-13] MEDS: Ferrous Sulfate 324 MG Tab.EC PO SCH ×2 (07:46→19:06)
[2020-01-13] MEDS: Pregabalin 25 MG Cap PO SCH ×2 (07:46→19:06)
[2020-01-13] MEDS: Aspirin 81 MG Tab.EC PO SCH (07:46)
[2020-01-13] MEDS: Multivitamin Tab PO SCH (07:46)
[2020-01-13] MEDS: Propranolol 10 MG Tab PO SCH ×2 (07:47→19:07)
[2020-01-13] MEDS: DULoxetine 30 MG Cap PO SCH (07:47)
[2020-01-13] MEDS: Cyclobenzaprine 10 MG Tab PO PRN ×2 (07:52→16:49)
[2020-01-13] MEDS: Ibuprofen 200 MG Tab PO PRN ×3 (07:52→23:43)
[2020-01-13] MEDS: HYDROmorphone 2 MG Tab PO PRN ×3 (07:53→23:43)
[2020-01-13] MEDS: Levofloxacin 500 MG Tab PO SCH (15:46)
[2020-01-13] MEDS: Temazepam 15 MG Cap PO PRN (23:42)
[2020-01-14] MEDS: Acetaminophen 325 MG Tab PO PRN ×2 (03:52→19:13)
[2020-01-14] MEDS: Ibuprofen 200 MG Tab PO PRN ×3 (06:32→22:19)
[2020-01-14] MEDS: HYDROmorphone 2 MG Tab PO PRN ×3 (06:34→22:19)
[2020-01-14] MEDS: Cyclobenzaprine 10 MG Tab PO PRN ×2 (06:38→14:48)
[2020-01-14] MEDS: Propranolol 10 MG Tab PO SCH ×2 (07:22→20:20)
[2020-01-14] MEDS: Pregabalin 25 MG Cap PO SCH ×2 (07:23→20:20)
[2020-01-14] MEDS: Aspirin 81 MG Tab.EC PO SCH (07:23)
[2020-01-14] MEDS: Ferrous Sulfate 324 MG Tab.EC PO SCH ×2 (07:23→20:20)
[2020-01-14] MEDS: DULoxetine 30 MG Cap PO SCH (07:23)
[2020-01-14] MEDS: Multivitamin Tab PO SCH (07:23)
[2020-01-14] MEDS: Enoxaparin 40 MG/0.4 ML Syringe SUBCUT SCH (07:24)
[2020-01-14] MEDS: Nicotine 21 MG/24 Hr Patch TRDERM SCH (07:56)
[2020-01-14] MEDS: Levofloxacin 500 MG Tab PO SCH (16:30)
[2020-01-15] MEDS: HYDROmorphone 2 MG Tab PO PRN ×3 (06:46→22:15)
[2020-01-15] MEDS: Cyclobenzaprine 10 MG Tab PO PRN ×3 (06:46→22:16)
[2020-01-15] MEDS: Ibuprofen 200 MG Tab PO PRN ×3 (06:49→22:15)
[2020-01-15] MEDS: Enoxaparin 40 MG/0.4 ML Syringe SUBCUT SCH (07:36)
[2020-01-15] MEDS: Nicotine 21 MG/24 Hr Patch TRDERM SCH (07:36)
[2020-01-15] MEDS: Propranolol 10 MG Tab PO SCH ×2 (07:38→19:17)
[2020-01-15] MEDS: Multivitamin Tab PO SCH (07:39)
[2020-01-15] MEDS: Pregabalin 25 MG Cap PO SCH ×2 (07:39→19:16)
[2020-01-15] MEDS: DULoxetine 30 MG Cap PO SCH (07:39)
[2020-01-15] MEDS: Ferrous Sulfate 324 MG Tab.EC PO SCH ×2 (07:39→19:17)
[2020-01-15] MEDS: Aspirin 81 MG Tab.EC PO SCH (07:39)
[2020-01-15] MEDS: Acetaminophen 325 MG Tab PO PRN ×2 (10:07→18:57)
[2020-01-15] MEDS: Levofloxacin 500 MG Tab PO SCH (15:44)
[2020-01-15] MEDS: Temazepam 15 MG Cap PO PRN (22:14)
[2020-01-16] MEDS: Acetaminophen 325 MG Tab PO PRN (02:55)
[2020-01-16] MEDS: Cyclobenzaprine 10 MG Tab PO PRN ×2 (06:51→22:01)
[2020-01-16] MEDS: Ibuprofen 200 MG Tab PO PRN ×3 (06:51→20:17)
[2020-01-16] MEDS: Ferrous Sulfate 324 MG Tab.EC PO SCH ×2 (07:50→19:30)
[2020-01-16] MEDS: Multivitamin Tab PO SCH (07:50)
[2020-01-16] MEDS: DULoxetine 30 MG Cap PO SCH (07:50)
[2020-01-16] MEDS: Nicotine 21 MG/24 Hr Patch TRDERM SCH (07:50)
[2020-01-16] MEDS: Aspirin 81 MG Tab.EC PO SCH (07:51)
[2020-01-16] MEDS: Pregabalin 25 MG Cap PO SCH ×2 (07:51→19:30)
[2020-01-16] MEDS: Enoxaparin 40 MG/0.4 ML Syringe SUBCUT SCH (07:53)
[2020-01-16] MEDS: Propranolol 10 MG Tab PO SCH ×2 (07:55→19:30)
[2020-01-16] MEDS: HYDROmorphone 2 MG Tab PO PRN ×2 (13:35→20:16)
[2020-01-16] MEDS: Levofloxacin 500 MG Tab PO SCH (15:45)
[2020-01-16] MEDS: Temazepam 15 MG Cap PO PRN (22:01)
[2020-01-17] MEDS: Acetaminophen 325 MG Tab PO PRN ×3 (02:35→23:59)
[2020-01-17] MEDS: HYDROmorphone 2 MG Tab PO PRN ×3 (06:01→20:23)
[2020-01-17] MEDS: Ibuprofen 200 MG Tab PO PRN ×3 (06:02→20:22)
[2020-01-17] MEDS: Cyclobenzaprine 10 MG Tab PO PRN ×3 (06:03→23:58)
[2020-01-17] MEDS: Enoxaparin 40 MG/0.4 ML Syringe SUBCUT SCH ×2 (07:21→07:44)
[2020-01-17] MEDS: Aspirin 81 MG Tab.EC PO SCH ×2 (07:22→07:45)
[2020-01-17] MEDS: Multivitamin Tab PO SCH ×2 (07:22→07:46)
[2020-01-17] MEDS: Ferrous Sulfate 324 MG Tab.EC PO SCH ×3 (07:22→19:37)
[2020-01-17] MEDS: Pregabalin 25 MG Cap PO SCH ×3 (07:22→19:36)
[2020-01-17] MEDS: DULoxetine 30 MG Cap PO SCH ×2 (07:23→07:42)
[2020-01-17] MEDS: Propranolol 10 MG Tab PO SCH ×2 (07:41→19:37)
[2020-01-17] MEDS: Nicotine 21 MG/24 Hr Patch TRDERM SCH ×2 (07:48→07:49)
[2020-01-17] MEDS: Levofloxacin 500 MG Tab PO SCH (16:24)
[2020-01-17] MEDS: Temazepam 15 MG Cap PO PRN (22:05)
[2020-01-18] MEDS: Ibuprofen 200 MG Tab PO PRN ×3 (03:20→22:02)
[2020-01-18] MEDS: HYDROmorphone 2 MG Tab PO PRN ×2 (03:20→10:07)
[2020-01-18] MEDS: Aspirin 81 MG Tab.EC PO SCH (07:42)
[2020-01-18] MEDS: Pregabalin 25 MG Cap PO SCH ×2 (07:42→19:38)
[2020-01-18] MEDS: Multivitamin Tab PO SCH (07:42)
[2020-01-18] MEDS: DULoxetine 30 MG Cap PO SCH (07:43)
[2020-01-18] MEDS: Ferrous Sulfate 324 MG Tab.EC PO SCH ×2 (07:43→19:38)
[2020-01-18] MEDS: Nicotine 21 MG/24 Hr Patch TRDERM SCH (07:44)
[2020-01-18] MEDS: Enoxaparin 40 MG/0.4 ML Syringe SUBCUT SCH (07:44)
[2020-01-18] MEDS: Propranolol 10 MG Tab PO SCH ×2 (07:45→19:38)
[2020-01-18] MEDS: Acetaminophen 325 MG Tab PO PRN (07:57)
[2020-01-18] MEDS: Cyclobenzaprine 10 MG Tab PO PRN ×2 (07:57→21:07)
[2020-01-18] MEDS ORDERED: Acetaminophen/HYDROcodone 325-5 MG Tab PO PRN (10:46)
[2020-01-18] MEDS: Acetaminophen/HYDROcodone 325-5 MG Tab PO PRN ×2 (15:03→21:07)
[2020-01-18] MEDS: Levofloxacin 500 MG Tab PO SCH (16:11)
[2020-01-18] MEDS: Temazepam 15 MG Cap PO PRN (22:03)
[2020-01-19] MEDS: Acetaminophen/HYDROcodone 325-5 MG Tab PO PRN ×4 (03:26→21:06)
[2020-01-19] MEDS: Ibuprofen 200 MG Tab PO PRN ×3 (06:51→21:05)
[2020-01-19] MEDS: Cyclobenzaprine 10 MG Tab PO PRN ×2 (06:51→22:08)
[2020-01-19] MEDS: Nicotine 21 MG/24 Hr Patch TRDERM SCH (07:38)
[2020-01-19] MEDS: Aspirin 81 MG Tab.EC PO SCH (07:42)
[2020-01-19] MEDS: Propranolol 10 MG Tab PO SCH ×2 (07:42→19:38)
[2020-01-19] MEDS: Enoxaparin 40 MG/0.4 ML Syringe SUBCUT SCH (07:42)
[2020-01-19] MEDS: Ferrous Sulfate 324 MG Tab.EC PO SCH ×2 (07:43→19:38)
[2020-01-19] MEDS: Multivitamin Tab PO SCH (07:43)
[2020-01-19] MEDS: DULoxetine 30 MG Cap PO SCH (07:43)
[2020-01-19] MEDS: Pregabalin 25 MG Cap PO SCH ×2 (07:45→19:37)
[2020-01-19] MEDS: Levofloxacin 500 MG Tab PO SCH (16:13)
[2020-01-19] MEDS: Temazepam 15 MG Cap PO PRN (22:08)
[2020-01-20] MEDS: Ibuprofen 200 MG Tab PO PRN ×4 (03:17→22:14)
[2020-01-20] MEDS: Acetaminophen/HYDROcodone 325-5 MG Tab PO PRN ×4 (03:17→22:14)
[2020-01-20] MEDS: Ferrous Sulfate 324 MG Tab.EC PO SCH ×2 (07:27→19:16)
[2020-01-20] MEDS: Multivitamin Tab PO SCH (07:27)
[2020-01-20] MEDS: DULoxetine 30 MG Cap PO SCH (07:27)
[2020-01-20] MEDS: Pregabalin 25 MG Cap PO SCH ×2 (07:27→19:17)
[2020-01-20] MEDS: Aspirin 81 MG Tab.EC PO SCH (07:27)
[2020-01-20] MEDS: Propranolol 10 MG Tab PO SCH ×2 (07:27→19:16)
[2020-01-20] MEDS: Enoxaparin 40 MG/0.4 ML Syringe SUBCUT SCH (07:28)
[2020-01-20] MEDS: Nicotine 21 MG/24 Hr Patch TRDERM SCH (07:29)
[2020-01-20] MEDS: Cyclobenzaprine 10 MG Tab PO PRN ×2 (07:58→20:08)
[2020-01-20] MEDS: Levofloxacin 500 MG Tab PO SCH (16:09)
[2020-01-20] MEDS: Temazepam 15 MG Cap PO PRN (22:14)
[2020-01-21] MEDS: Ibuprofen 200 MG Tab PO PRN ×3 (05:53→18:15)
[2020-01-21] MEDS: Acetaminophen/HYDROcodone 325-5 MG Tab PO PRN ×3 (05:54→18:16)
[2020-01-21] MEDS: Pregabalin 25 MG Cap PO SCH ×2 (07:35→19:23)
[2020-01-21] MEDS: Enoxaparin 40 MG/0.4 ML Syringe SUBCUT SCH (07:35)
[2020-01-21] MEDS: Cyclobenzaprine 10 MG Tab PO PRN ×2 (07:36→21:15)
[2020-01-21] MEDS: Propranolol 10 MG Tab PO SCH ×2 (07:36→19:23)
[2020-01-21] MEDS: Aspirin 81 MG Tab.EC PO SCH (07:36)
[2020-01-21] MEDS: Multivitamin Tab PO SCH (07:36)
[2020-01-21] MEDS: DULoxetine 30 MG Cap PO SCH (07:36)
[2020-01-21] MEDS: Nicotine 21 MG/24 Hr Patch TRDERM SCH (07:36)
[2020-01-21] MEDS: Ferrous Sulfate 324 MG Tab.EC PO SCH ×2 (07:36→19:23)
[2020-01-21] MEDS: Levofloxacin 500 MG Tab PO SCH (15:50)
[2020-01-21] MEDS: Temazepam 15 MG Cap PO PRN (21:14)
[2020-01-22] MEDS: Ibuprofen 200 MG Tab PO PRN ×3 (00:36→12:58)
[2020-01-22] MEDS: Acetaminophen/HYDROcodone 325-5 MG Tab PO PRN ×2 (06:25→12:59)
[2020-01-22] MEDS: Aspirin 81 MG Tab.EC PO SCH (07:32)
[2020-01-22] MEDS: DULoxetine 30 MG Cap PO SCH (07:32)
[2020-01-22] MEDS: Propranolol 10 MG Tab PO SCH (07:32)
[2020-01-22] MEDS: Nicotine 21 MG/24 Hr Patch TRDERM SCH (07:32)
[2020-01-22] MEDS: Pregabalin 25 MG Cap PO SCH (07:32)
[2020-01-22] MEDS: Ferrous Sulfate 324 MG Tab.EC PO SCH (07:33)
[2020-01-22] MEDS: Multivitamin Tab PO SCH (07:33)
[2020-01-22] MEDS: Enoxaparin 40 MG/0.4 ML Syringe SUBCUT SCH (07:33)
[2020-01-22 07:34] VITALS: BP 112/76; PULSE 84
[2020-01-22] MEDS: Cyclobenzaprine 10 MG Tab PO PRN (09:36)
--- NOTE | 2020-01-22 13:07 | DISCH ---
ADMISSION DIAGNOSES: 1. Enterococcus wound infection. 2. Status post open reduction and internal fixation right hip with ultimate hardware removal. 3. Chronic alcoholism. 4. Status post alcohol withdrawal syndrome. HISTORY: Eamon is a 44-year-old male who was admitted back to our facility. He has an interesting history, which includes prior swing bed admission after a fall and sustaining a right hip fracture. He underwent ORIF of his right hip by Dr. Ortiz and was admitted to swing bed. He had severe DTs and was transferred to [place], where he was detoxed for approximately a week. Workup at that time was completely unremarkable. He came back to our facility where he developed a fluid collection over his right hip, which ultimately started draining and confirmed enterococcus infection. Dr. Ortiz ultimately did an I and D and hardware removal from his right hip fracture, and he was sent to our facility for IV antibiotics for osteomyelitis. SWING BED COURSE: The patient has done well and has been stable in our facility. He has completed his course of IV vancomycin and Levaquin. His CRPs have trended down, last one around 8. He has not spiked any temps. He has been stable from a cardiopulmonary standpoint. He has required no medications for anxiety, is requiring at this time hydrocodone for pain 4 times a day. Physical Therapy states he has been stable, has not progressed a lot in the last month, but he has less pain with ambulation. He is learning to walk with a cane and does quite well with a walker. He has a PICC line in his left brachial region that will stay in until decision is made for next week when patient has a followup with Dr. Ortiz for repeat imaging and blood work. No other new changes until Dr. Ortiz's recommendations. COMPLICATIONS: During his stay were none. CONSULTATIONS: PT. DISPOSITION: Discharged home with home health for monitoring of wound, vital signs, including fever checks, and medication assistance for pain control. MARIO/KANWAL /[id number]
== END 2020-01-22 12:55 | disposition home health service (06) | DRG 949 ==
LOC: CC.MS 13:01 → UNDOADMIN 13:01 → CC.MS 14:10
PROVIDERS: ADMIT Family Medicine; ATTEND Family Medicine
DX: T84.69XD Infection and inflammatory reaction due to internal fixation device of other site, subsequent encounter (principal); M86.8X5 Other osteomyelitis, thigh; F84.0 Autistic disorder; B95.2 Enterococcus as the cause of diseases classified elsewhere; F10.20 Alcohol dependence, uncomplicated; I10 Essential (primary) hypertension; I34.1 Nonrheumatic mitral (valve) prolapse; J45.909 Unspecified asthma, uncomplicated; F17.210 Nicotine dependence, cigarettes, uncomplicated; G62.9 Polyneuropathy, unspecified; F32.9 Major depressive disorder, single episode, unspecified; Z90.89 Acquired absence of other organs; Z79.82 Long term (current) use of aspirin; Z79.899 Other long term (current) drug therapy
CPT/HCPCS: 36415; 80048; 80202; 82565; 85025; 86140; 97110-GP; 97116-GP; 97161-GP; A9270-GY; J1642; J1650; J3370; J7040; J7050